=== PATIENT | male | born 1935 | race Caucasian/White ===

== ENCOUNTER 2016-11-29 11:04 | Observation (INO) | payer MEDICARE, OTHER ==
[2016-11-29] VITALS (8 sets, daily range): BP systolic 139–176; BP diastolic 65–79; PULSE 86–103; RESP 15–24; TEMP 98.5; O2SAT 91–97
[2016-11-29] MEDS ORDERED: MORPHINE SULFATE 8 MG/ML INJ ONE (11:10)
[2016-11-29] MEDS ORDERED: ONDANSETRON HCL 4 MG/2 ML VIAL ONE (11:10)
[2016-11-29 11:31] LABS: AUTOMATED NEUTROPHIL # 5.4 TH/MM3 (1.8-7.7); BASOPHIL # 0.1 TH/MM3 (0-0.2); BASOPHIL % 0.9 % (0.0-2.0); EOSINOPHIL # 0.1 TH/MM3 (0-0.4); EOSINOPHIL % 0.8 % (0.0-4.0); HEMATOCRIT 44.3 % (39.0-51.0); LYMPH % 24.9 % (9.0-44.0); LYMPHOCYTE # 2.1 TH/MM3 (1.0-4.8); MEAN CELL VOLUME 84.5 FL (80.0-100.0); MEAN CORPUSCULAR HEMOGLOBIN 28.4 PG (27.0-34.0); MEAN CORPUSCULAR HGB CONC 33.7 % (32.0-36.0); MONO % 9.3 % (0.0-8.0); NEUT % 64.1 % (16.0-70.0); PLATELET COUNT 216 TH/MM3 (150-450); RED BLOOD COUNT 5.25 MIL/MM3 (4.50-5.90); RED CELL DISTRIBUTION WIDTH 13.5 % (11.6-17.2); WHITE BLOOD COUNT 8.5 TH/MM3 (4.0-11.0)
[2016-11-29 11:32] LABS: HEMO FLAGS AUTO DIFF
--- NOTE | 2016-11-29 11:33 | PD ---
HPI Chief Complaint: trauma alert Time Seen by Provider: 11:13 Travel History International Travel<30 days: No Contact w/Intl Traveler<30days: No Traveled to known affect area: No History of Present Illness HPI The patient is approximately 81 year-old male who presents emergency department via EMS from [place] as a trauma alert. According to EMS the patient was going from a ladder to a roof when he fell approximately 12 feet. According to EMS the patient apparently fell against a brick wall and then landed on a cement ground. The patient states he landed back first, there was no loss of consciousness. The patient does complain of low back pain that is nonradiating, worse with movement, slightly alleviated at rest. The patient does have a history of previous back surgery. The patient denies any loss of consciousness, headache, neck pain, chest pain, shortness breath, nausea, vomiting, or abdominal pain. The patient does complain of did come to breathing out of his nose. The patient denies any weakness, numbness, or tingling of the upper or lower extremities. The patient did recently have open- heart surgery performed by his cardiothoracic surgeon, Dr. David, as well as a cardiac ablation 1 month ago. The patient is currently taking Xarelto. PFSH Past Medical History Narrative Medical Coronary artery disease, hypertension, hyperlipidemia, diabetes Past Surgical History Narrative Surgical CABG, back surgery Social History Tobacco Use: No Allergies-Medications (Allergen,Severity, Reaction): Coded Allergies: No Known Allergies (Unverified , 11/29/16) Reported Meds & Prescriptions Reported Meds & Active Scripts Active Reported Xarelto (Rivaroxaban) 20 Mg Tab 20 Mg PO DAILY Aspirin 81 Mg Chew 81 Mg CHEW DAILY Lisinopril-Hctz 20-12.5 Mg Tab 1 Tab PO DAILY Caduet (Amlodipine-Atorvastatin) 5-20 Mg Tab 1 Tab PO DAILY Metformin (Metformin HCl) 500 Mg Tab 500 Mg PO BIDPC With meals Review of Systems Except as stated in HPI: all other systems reviewed are Neg HENT: No: Headaches, Lightheadedness, Neck Pain Cardiovascular: No: Chest Pain or Discomfort Respiratory: No: Shortness of Breath Gastrointestinal: No: Nausea, Vomiting, Abdominal Pain Musculoskeletal: Positive: Pain Neurologic: No: Dizziness Physical Exam Narrative GENERAL: Awake, alert, pleasant 81-year-old appearing male who is in no acute respiratory distress. Patient initially is on a backboard wearing a cervical collar. SKIN: Warm and dry. Superficial abrasions to the volar aspect of the wrist bilaterally. HEAD: Atraumatic. Normocephalic. EYES: Pupils equal and round. Pupils are 3 mm bilateral and reactive. EOMs are intact. ENT: No nasal bleeding or discharge. Mucous membranes pink and moist. NECK: Trachea midline. No JVD. Cervical collar in place. CARDIOVASCULAR: Regular rate and rhythm. No murmur appreciated. Well-healed midline surgical scar. RESPIRATORY: No accessory muscle use. Clear to auscultation. Breath sounds equal bilaterally. GASTROINTESTINAL: Abdomen soft, non-tender, nondistended. No rebound tenderness. Back: Tenderness over the lumbar region with well-healed surgical scar present. MUSCULOSKELETAL: No obvious deformities. No clubbing. No cyanosis. No edema. Moves all 4 extremities without difficulty. NEUROLOGICAL: Awake and alert. No obvious cranial nerve deficits. Motor grossly within normal limits. Normal speech. Sensation is intact all 4 extremities. PSYCHIATRIC: Appropriate mood and affect; insight and judgment normal. Data Data Last Documented VS Vital Signs Date Time Temp Pulse Resp B/P Pulse Ox O2 Delivery O2 Flow Rate FiO2 11/29/16 12:05 86 15 176/79 95 Nasal Cannula 2 Orders Morphine Inj (Morphine Inj) (11/29/16 11:10) Ondansetron Inj (Zofran Inj) (11/29/16 11:10) I-Stat Profile (11/29/16 11:13) I-Stat Creatinine (11/29/16 11:13) Complete Blood Count With Diff (11/29/16 11:13) Prothrombin Time / Inr (Pt) (11/29/16 11:13) Act Partial Throm Time (Ptt) (11/29/16 11:13) Type And Screen (11/29/16 11:13) Chest, Single Ap (11/29/16 11:13) Pelvis, Ap Only (Routine) (11/29/16 11:13) Ct Brain W/O Iv Contrast(Rout) (11/29/16 11:13) Ct Cerv Spine W/O Contrast (11/29/16 11:13) Ct Abd/Pel W Iv Contrast(Rout) (11/29/16 11:13) Ct Lumb Spine W/O Contrast (11/29/16 11:13) Iv Access Insert/Monitor (11/29/16 11:13) Ecg Monitoring (11/29/16 11:13) Oximetry (11/29/16 11:13) Oxygen Administration (11/29/16 11:13) Ed Poc Ultrasound (11/29/16 11:13) Iohexol 350 Inj (Omnipaque 350 Inj) (11/29/16 11:36) Acetamin-Hydrocod 325-5 Mg ([place] 5-325 (11/29/16 12:45) Electrocardiogram (11/29/16 ) Morphine Inj (Morphine Inj) (11/29/16 13:15) Admit Order (Ed Use Only) (11/29/16 13:07) Labs Laboratory Tests Test 11/29/16 11:12 White Blood Count 8.5 TH/MM3 Red Blood Count 5.25 MIL/MM3 Hemoglobin 14.9 GM/DL Bedside Hemoglobin 15.3 G/DL Hematocrit 44.3 % Bedside Hematocrit 45.0 % Mean Corpuscular Volume 84.5 FL Mean Corpuscular Hemoglobin 28.4 PG Mean Corpuscular Hemoglobin 33.7 % Concent Red Cell Distribution Width 13.5 % Platelet Count 216 TH/MM3 Mean Platelet Volume 8.8 FL Neutrophils (%) (Auto) 64.1 % Lymphocytes (%) (Auto) 24.9 % Monocytes (%) (Auto) 9.3 % Eosinophils (%) (Auto) 0.8 % Basophils (%) (Auto) 0.9 % Neutrophils # (Auto) 5.4 TH/MM3 Lymphocytes # (Auto) 2.1 TH/MM3 Monocytes # (Auto) 0.8 TH/MM3 Eosinophils # (Auto) 0.1 TH/MM3 Basophils # (Auto) 0.1 TH/MM3 CBC Comment AUTO DIFF Differential Comment AUTO DIFF CONFIRMED Platelet Estimate NORMAL Platelet Morphology Comment NORMAL Red Cell Morphology Comment NORMAL Prothrombin Time 17.1 SEC Prothromb Time International 1.5 RATIO Ratio Activated Partial 36.6 SEC Thromboplast Time Bedside Sodium 141 MMOL/L Bedside Potassium 4.0 MMOL/L Bedside Chloride 102 MMOL/L Bedside Blood Urea Nitrogen 17 MG/DL Bedside Creatinine 0.9 MG/DL Bedside Glucose 157 MG/DL Blood Type O POSITIVE Antibody Screen NEGATIVE MDM Medical Screen Exam Complete: Yes Emergency Medical Condition: Yes Medical Record Reviewed: No (Bryce yang old records to evaluate) EKG Prior to Arrival: No Interpretation(s) CT cervical spine reveals degenerative changes and spinal stenosis. No evidence of fracture. CT of the brain reveals no acute traumatic injury CT abdomen and pelvis reveals negative for an acute manic injury. Significant vascular disease. Multiple diverticula in the sigmoid colon. CT lumbar spine reveals extensive degenerative changes without evidence for fracture. Laminectomy seen from L3 to L5. Laboratory Tests Test 11/29/16 11:12 White Blood Count 8.5 TH/MM3 Red Blood Count 5.25 MIL/MM3 Hemoglobin 14.9 GM/DL Bedside Hemoglobin 15.3 G/DL Hematocrit 44.3 % Bedside Hematocrit 45.0 % Mean Corpuscular Volume 84.5 FL Mean Corpuscular Hemoglobin 28.4 PG Mean Corpuscular Hemoglobin 33.7 % Concent Red Cell Distribution Width 13.5 % Platelet Count 216 TH/MM3 Mean Platelet Volume 8.8 FL Neutrophils (%) (Auto) 64.1 % Lymphocytes (%) (Auto) 24.9 % Monocytes (%) (Auto) 9.3 % Eosinophils (%) (Auto) 0.8 % Basophils (%) (Auto) 0.9 % Neutrophils # (Auto) 5.4 TH/MM3 Lymphocytes # (Auto) 2.1 TH/MM3 Monocytes # (Auto) 0.8 TH/MM3 Eosinophils # (Auto) 0.1 TH/MM3 Basophils # (Auto) 0.1 TH/MM3 CBC Comment AUTO DIFF Differential Comment AUTO DIFF CONFIRMED Platelet Estimate NORMAL Platelet Morphology Comment NORMAL Red Cell Morphology Comment NORMAL Prothrombin Time 17.1 SEC Prothromb Time International 1.5 RATIO Ratio Activated Partial 36.6 SEC Thromboplast Time Bedside Sodium 141 MMOL/L Bedside Potassium 4.0 MMOL/L Bedside Chloride 102 MMOL/L Bedside Blood Urea Nitrogen 17 MG/DL Bedside Creatinine 0.9 MG/DL Bedside Glucose 157 MG/DL Blood Type O POSITIVE EKG reveals normal sinus rhythm with a rate 88. First-degree AV block with NE interval of 263 ms. RSR prime in V1 consistent with incomplete right bundle branch block. Nonspecific T wave changes. Differential Diagnosis Differential diagnosis includes multisystem trauma, closed head injury, to cranial hemorrhage, cervical fracture, intra-abdominal injury, retroperitoneal hemorrhage, lumbar fracture, contusion, hematoma, spinal cord injury. Narrative Course ATLS protocol was followed. The trauma surgeon, Dr. Jazarevic, was present. The patient's airway, breathing, circulation were intact. 2 large-bore IVs were established, labs were drawn and sent, and the patient was placed on cardiac telemetry monitoring and continuous pulse oximetry monitoring. I-STAT was obtained. Chest x-ray and pelvis x-ray were obtained which were unremarkable. The patient's tetanus shot was updated and the patient was administered morphine and Zofran for his discomfort. The patient was log rolled off the backboard in the back was inspected. The patient then went to the CT suite with the trauma team for CT the brain, cervical spine, abdomen/ pelvis, and lumbar spine. CT of the brain, cervical spine, abdomen/pelvis, and lumbar spine are negative for acute pathology. Therefore, a trial of ambulation was performed in the emergency department. The patient was unable to sit upright secondary to low back pain and was unable to ambulate. Therefore , patient will be admitted for pain control and physical therapy evaluation. Trauma Alert - Level One Trauma Alert Level One: Full trauma team activate Time Surgeon Summoned: 10:51 Physician Communication I discussed the patient with the trauma surgeon who agrees with admission. Diagnosis Diagnosis: Primary Impression: Trauma Additional Impression: Intractable low back pain Admitting Physician Requests: Admit Condition: Stable Damian Echols MD Nov 29, 2016 11:33
--- NOTE | 2016-11-29 11:34 | RADRPT ---
EXAM DATE/TIME: 11/29/2016 11:20 [facility] COMPARISON: No previous studies available for comparison. INDICATIONS : Fall over 12 feet, trauma alert RADIATION DOSE: 55.91 CTDIvol (mGy) MEDICAL HISTORY : Non-responsive. SURGICAL HISTORY : Non-responsive. ENCOUNTER: Initial ACUITY: 1 day PAIN SCALE: 4/10 LOCATION: cranial TECHNIQUE: Multiple contiguous axial images were obtained of the head. Using automated exposure control and adjustment of the mA and/or kV according to patient size, radiation dose was kept as low as reasonably achievable to obtain optimal diagnostic quality images. FINDINGS: CEREBRUM: The ventricles are normal for age. No evidence of midline shift, mass lesion, hemorrha ge or acute infarction. No extra-axial fluid collections are seen. POSTERIOR FOSSA: The cerebellum and brainstem are intact. The 4th ventricle is midline. The cer ebellopontine angle is unremarkable. EXTRACRANIAL: The visualized portion of the orbits is intact. SKULL: The calvaria is intact. No evidence of skull fracture. CONCLUSION: Negative for acute traumatic injury. Jose Samuels MD FACR on November 29, 2016 at 11:32 Board Certified Radiologist. This report was verified electronically.
[2016-11-29] MEDS ORDERED: IOHEXOL 350 MG/ML 10 ML VIAL (for RAD DIAG) IV ONE (11:36)
--- NOTE | 2016-11-29 11:37 | RADRPT ---
EXAM DATE/TIME: 11/29/2016 10:59 [facility] COMPARISON: No previous studies available for comparison. INDICATIONS: Trauma alert. Fall from 12 foot ladder. Impact to lower back. MEDICAL HISTORY: None. SURGICAL HISTORY: None. ENCOUNTER: Initial ACUITY: 1 day PAIN SCORE: 0/10 LOCATION: Bilateral chest FINDINGS: Sternal wires from previous median sternotomy are noted. Heart is minimally enlarged. Pulmonary vas cularity is normal. There is no evidence for pneumothorax. CONCLUSION: 1. Compensated cardiomegaly without pneumothorax. 2. Artifact from backboard is present. Jose Samuels MD FACR on November 29, 2016 at 11:31 Board Certified Radiologist. This report was verified electronically.
--- NOTE | 2016-11-29 11:39 | RADRPT ---
EXAM DATE/TIME: 11/29/2016 10:59 [facility] COMPARISON: No previous studies available for comparison. INDICATIONS: Trauma alert. Fall from 12 foot ladder. Impact to lower back. MEDICAL HISTORY: None. SURGICAL HISTORY: None. ENCOUNTER: Initial ACUITY: 1 day PAIN SCORE: 8/10 LOCATION: Lumbar FINDINGS: AP of the pelvis on a backboard reveals degenerative changes about both hips. Alignment is anatomic. Fracture is not appreciated. CONCLUSION: Degenerative change without fracture. Jose Samuels MD FACR on November 29, 2016 at 11:32 Board Certified Radiologist. This report was verified electronically.
[2016-11-29 11:40] LABS: PROTHROMBIN TIME - PATIENT 17.1 SEC (9.8-11.6)
[2016-11-29 11:41] LABS: APTT (PATIENT) 36.6 SEC (24.3-30.1); INTERNATIONAL NORMALIZED RATIO 1.5 RATIO
[2016-11-29] MEDS ORDERED: ASPI81CH CHEW (11:52)
[2016-11-29] MEDS ORDERED: METF500T PO (11:52)
[2016-11-29] MEDS ORDERED: CADU5TAB2 PO (11:52)
[2016-11-29] MEDS ORDERED: LISI20TA PO (11:52)
[2016-11-29 12:02] LABS: PLATELET ESTIMATE SMEAR NORMAL (NORMAL); PLATELET MORPHOLOGY NORMAL (NORMAL); SCAN/DIFF AUTO DIFF CONFIRMED
--- NOTE | 2016-11-29 12:05 | RADRPT ---
EXAM DATE/TIME: 11/29/2016 11:27 [facility] COMPARISON: No previous studies available for comparison. INDICATIONS: Fall from 12 feet, trauma alert IV CONTRAST: 99 cc Omnipaque 350 (iohexol) IV; Cumulative dose for multiple exams. ORAL CONTRAST: No oral contrast ingested. RADIATION DOSE: 14.30 CTDIvol (mGy) MEDICAL HISTORY: Non-responsive. SURGICAL HISTORY: Non-responsive. ENCOUNTER: Initial ACUITY: 1 day PAIN SCALE: 5/10 LOCATION: Abdominal pain TECHNIQUE: Volumetric scanning of the abdomen and pelvis was performed. Using automated exposure control and ad justment of the mA and/or kV according to patient size, radiation dose was kept as low as reasonably achievable to obtain optimal diagnostic quality images. FINDINGS: Sternal wires from previous median sternotomy are noted. There is no pericardial effusion. There is no pneumothorax. The liver, spleen, pancreas, adrenals are unremarkable. There is symmetrical renal function. There is very minimal perinephric stranding about the left kidney with a small cyst evident. Moderate vascular calcifications are noted. In the pelvis moderate vascular calcifications are noted. Multiple diverticula are present in the si gmoid colon. Review of bone windows reveals degenerative changes in the lumbar spine. I see no definite rib fract ure. Moderate SI joint degenerative changes are noted. Degenerative changes are noted in the lumbar spine about both hips. Fracture is not appreciated. CONCLUSION: 1. Negative for an acute traumatic injury. 2. Significant vascular disease. 3. Multiple diverticula in the sigmoid colon. Jose Samuels MD FACR on November 29, 2016 at 11:46 Board Certified Radiologist. This report was verified electronically.
--- NOTE | 2016-11-29 12:05 | RADRPT ---
EXAM DATE/TIME: 11/29/2016 11:20 [facility] COMPARISON: No previous studies available for comparison. INDICATIONS: Fall from 12 feet, trauma alert RADIATION DOSE: 22.18 CTDIvol (mGy) MEDICAL HISTORY: Non-responsive. SURGICAL HISTORY: Non-responsive. ENCOUNTER: Initial ACUITY: 1 day PAIN SCALE: 4/10 LOCATION: Neck TECHNIQUE: Volumetric scanning of the cervical spine was performed. Multiplanar reconstructions in the sagittal, coronal and oblique axial planes were performed. Using automated exposure control and adjustment o f the mA and/or kV according to patient size, radiation dose was kept as low as reasonably achievable to obtain optimal diagnostic quality images. FINDINGS Alignment is anatomic in the sagittal and coronal projections. There are degenerative changes at C1 and C2. C2-C3: Mild uncinate ridging present without significant spinal stenosis. C3-C4: There is uncinate ridging present with moderate left-sided neural foramina encroachment. Spinal sten osis is moderate. C4-C5: Moderate facet disease is present with bilateral neural foramina encroachment worse on the right than left. Mild uncinate ridging is present. Spinal stenosis is minimal. C5-C6: Uncinate ridging is present with bilateral mild neural foramina encroachment. C6-C7: Mild uncinate ridging is present. There is minimal left-sided neural foramina encroachment. C7-T1: The bony spinal canal is normal in size. No evidence of disc bulge or herniation. The neural forami na are bilaterally patent. CONCLUSION: Mild degenerative changes as described above. Jose Samuels MD FACR on November 29, 2016 at 11:44 Board Certified Radiologist. This report was verified electronically.
[2016-11-29] MEDS ORDERED: XARE20TA PO (12:07)
--- NOTE | 2016-11-29 12:16 | RADRPT ---
EXAM DATE/TIME: 11/29/2016 11:27 [facility] COMPARISON: No previous studies available for comparison. INDICATIONS : Fall from 12 feet, trama alert RADIATION DOSE: CTDIvol (mGy) ; Reconstructed from previous dataset MEDICAL HISTORY : Non-responsive. SURGICAL HISTORY : Non-responsive. ENCOUNTER: Initial ACUITY: 1 day PAIN SCALE: 5/10 LOCATION: lumbar spine TECHNIQUE: Volumetric scanning of the lumbar spine was performed. Multiplanar reconstructions in the sagittal, coronal and oblique axial planes were performed. Using automated exposure control and adjustment of the mA and/or kV according to patient size, radiation dose was kept as low as reasonably achievable t o obtain optimal diagnostic quality images. FINDINGS: CT scan of the lumbar spine reveals extensive degenerative changes in the lumbar spine. There is los s of vertebral body height at L1 that appears chronic. Vacuum changes are seen at L3-4. Extensive f acet disease is noted with previous laminectomy at L3 to L5. T12-L1: Mild uncinate interspace ridging is present with mild facet disease. L1-L2: Mild facet disease is present. There is minimal spinal stenosis. L2-L3: Generalized disc bulging is present with facet disease. There is minimal ligamentous hypertrophy. T here is mild to moderate spinal stenosis. Large laminectomy defect is seen from L3 to L5. There is mild bilateral neural foramina encroachment L4-5. L3-L4: The thecal sac has a normal diameter. No evidence of disc bulge or protrusion. The neural foramina are patent bilaterally. L4-L5: Generalized disc bulging is present with moderate neural foramina encroachment on the left. Extensiv e facet disease is present. L5-S1: Moderate facet disease is present. SI joints are normal. There is no evidence for fracture. CONCLUSION: 1. Extensive degenerative changes without evidence for fracture. Laminectomy seen from L3 to L5. Jose Samuels MD FACR on November 29, 2016 at 11:55 Board Certified Radiologist. This report was verified electronically.
[2016-11-29] MEDS ORDERED: ACETAMINOPHEN/HYDROcodone 325 MG/5 MG TAB PO ONE (12:45)
[2016-11-29] MEDS ORDERED: MORPHINE SULFATE 4 MG/ML INJ IV PUSH ONE (13:15)
[2016-11-29] MEDS ORDERED: ACETAMINOPHEN 650 MG SUPP PR PRN (14:45)
[2016-11-29] MEDS ORDERED: SODIUM CHLORIDE 0.9% FLUSH 5 ML FLUSH IVF PRN ×2 (14:45→16:00)
[2016-11-29] MEDS ORDERED: MORPHINE SULFATE 4 MG/ML INJ IV PUSH PRN (14:45)
[2016-11-29] MEDS ORDERED: ACETAMINOPHEN/HYDROcodone 325 MG/5 MG TAB PO PRN (14:45)
[2016-11-29] MEDS ORDERED: ONDANSETRON HCL 4 MG/2 ML VIAL IV PRN (14:45)
[2016-11-29] MEDS ORDERED: MORPHINE SULFATE 8 MG/ML INJ IV PUSH PRN (16:00)
[2016-11-29] MEDS ORDERED: Post-op Orders (for Pharmacy) MISC XX ONE (16:00)
[2016-11-29] MEDS ORDERED: oxyCODONE/ACETAMINOPHEN 5 MG/325 MG TAB PO PRN (16:00)
--- NOTE | 2016-11-29 17:53 | MH ---
cc: GALE RAMIREZ MD DATE OF ADMISSION 11/29/[address] Ramirez, trauma surgery ADMISSION DIAGNOSIS Fall from 12 feet ladder, coronary artery disease, severe back pain, anticoagulant therapy. HISTORY OF THE PRESENT ILLNESS This 81-year-old gentleman fell in [facility] from a ladder about 12 feet. The patient apparently landed against a brick wall and then landed on cement ground. He landed on his back without loss of consciousness. The patient started having severe pain and got short of breath. He is on Xarelto after his open heart surgery by Dr. David last year and cardiac ablation one month ago. Hence the trauma alert on admission. PAST MEDICAL HISTORY 1. Coronary artery disease. 2. Hypertension. 3. Hyperlipidemia. 4. Diabetes mellitus. PAST SURGICAL HISTORY Is that of: 1. Open heart surgery. 2. Back surgery. 3. Coronary ablation. 4. And left knee replacement. SOCIAL HISTORY The patient does not smoke, does not drink. 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 REVIEW OF SYSTEMS Normal except for severe back pain. The patient was doing well until now. PHYSICAL EXAMINATION GENERAL: Shows a pleasant 81-year-old gentleman appearing younger than his age. HEENT: Normocephalic. No trauma to the head. Pupils equally reactive. Extraocular muscles intact. NECK: Supple. Bilateral carotid pulses. No bruits. No signs of trauma to the neck. C collar is removed. CHEST: Bilateral breath sounds. HEART: Regular rhythm. Mediastinotomy scar nicely healed. ABDOMEN: Soft. Active bowel sounds. No rebound or guarding. No masses. EXTREMITIES: The patient has bilateral femoral, popliteal, dorsalis pedis and posterior tibial pulses. Scars from previous surgery. BACK: The patient is turned sideways to the back and log rolled. He has a surgical scar from previous laminectomy and fusion, however, he is extremely tender over the back from mid thoracic down to the lumbar spine. NEUROLOGICAL: The patient's [place] Coma Scale is 15. He is awake and alert, oriented times three. Motor and sensory full intact. CONCLUSION The patient with 12 feet fall on Xarelto for cardiovascular maintenance. At this point the patient is in severe pain and being on Xarelto I recommend a 24 hour observation. The patient will be admitted, receive pain medications, echocardiogram and be observed. Gale GRAVES /5:16 PM /5:43 PM
[2016-11-29] MEDS: LISINOPRIL 20 MG TAB PO SCH (18:00)
[2016-11-29] MEDS: metFORMIN HCL 500 MG TAB PO SCH (18:48)
[2016-11-29] MEDS ORDERED: VALS1TAB65 PO (18:51)
[2016-11-29] MEDS: DOCUSATE SODIUM 100 MG CAP PO SCH (20:20)
[2016-11-29] MEDS: SODIUM CHLORIDE 0.9% FLUSH 5 ML FLUSH IVF SCH (20:20)
[2016-11-29] MEDS ORDERED: SODIUM CHLORIDE 0.9% FLUSH 5 ML FLUSH IVF SCH (21:00)
[2016-11-30 00:28] VITALS: BP 163/79; PULSE 92; RESP 18; TEMP 97.7; O2SAT 95
[2016-11-30 05:34] VITALS: BP 160/76; PULSE 86; RESP 19; TEMP 97; O2SAT 92
[2016-11-30] MEDS: ACETAMINOPHEN 325 MG TAB PO PRN ×3 (05:46→15:31)
[2016-11-30 08:20] VITALS: BP 167/79; PULSE 88; RESP 20; TEMP 96.3; O2SAT 93
[2016-11-30 08:34] VITALS: O2SAT 94
[2016-11-30] MEDS: LISINOPRIL 20 MG TAB PO SCH (09:00)
[2016-11-30] MEDS ORDERED: RIVAROXABAN 20 MG TAB PO SCH (09:00)
[2016-11-30] MEDS ORDERED: MAGNESIUM HYDROXIDE SUSP 30 ML CUP PO SCH (09:15)
[2016-11-30] MEDS ORDERED: FAMOTIDINE 20 MG TAB PO SCH (09:15)
[2016-11-30] MEDS: SODIUM CHLORIDE 0.9% FLUSH 5 ML FLUSH IVF SCH (10:25)
[2016-11-30] MEDS: metFORMIN HCL 500 MG TAB PO SCH (10:27)
[2016-11-30] MEDS: DOCUSATE SODIUM 100 MG CAP PO SCH (10:27)
[2016-11-30] MEDS: METHOCARBAMOL 500 MG TAB PO SCH ×2 (10:30→13:16)
[2016-11-30] MEDS ORDERED: HYDR-3516 PO (11:43)
[2016-11-30] MEDS ORDERED: WALKER WHEELS/F1 MIS ×2 (11:48→13:29)
[2016-11-30] MEDS ORDERED: LIDO5DIS35 TD (11:52)
[2016-11-30] MEDS ORDERED: METH500T3 PO (11:52)
[2016-11-30] MEDS ORDERED: LIDOCAINE HCL 5% PATCH TD SCH (12:00)
[2016-11-30 12:27] VITALS: BP 157/84; PULSE 84; RESP 20; TEMP 97.7; O2SAT 94
--- NOTE | 2016-11-30 13:12 | HHI.DS ---
Discharge Summary Admission Date Nov 29, 2016 at 13:08 Discharge Date: Nov 30, 2016 Admitting Diagnosis trauma alert, back pain, inability to ambulate Brief History S/P Trauma: Fall from ladder CBC/BMP: 11/29/16 1112 Significant Findings Laboratory Tests Test 11/29/16 11:12 Monocytes (%) (Auto) 9.3 % (0.0-8.0) Prothrombin Time 17.1 SEC (9.8-11.6) Activated Partial 36.6 SEC Thromboplast Time (24.3-30.1) Bedside Glucose 157 MG/DL (60-95) Imaging Last Impressions Pelvis X-Ray 11/29/16 111 Signed Impressions: Service Date/Time: Tuesday, November 29, 2016 10:59 - CONCLUSION: Degenerative change without fracture. Jose Samuels MD FACR Lumbar Spine CT 11/29/161112 Signed Impressions: Service Date/Time: Tuesday, November 29, 2016 11:27 - CONCLUSION: 1. Extensive degenerative changes without evidence for fracture. Laminectomy seen from L3 to L5. Jose Samuels MD FACR Head CT 11/29/163 Signed Impressions: Service Date/Time: Tuesday, November 29, 2016 11:20 - CONCLUSION: Negative for acute traumatic injury. Jose Samuels MD FACR Chest X-Ray 11/29/161112 Signed Impressions: Service Date/Time: Tuesday, November 29, 2016 10:59 - CONCLUSION: 1. Compensated cardiomegaly without pneumothorax. 2. Artifact from backboard is present. Jose Samuels MD FACR Cervical Spine CT 11/29/16 1113 Signed Impressions: Service Date/Time: Tuesday, November 29, 2016 11:20 - CONCLUSION: Mild degenerative changes as described above. Jose Samuels MD FACR Abdomen/Pelvis CT 11/29/16 1113 Signed Impressions: Service Date/Time: Tuesday, November 29, 2016 11:27 - CONCLUSION: 1. Negative for an acute traumatic injury. 2. Significant vascular disease. 3. Multiple diverticula in the sigmoid colon. Jose Samuels MD FACR PE at Discharge GENERAL: 81-year-old well-nourished, well developed male lying in bed. SKIN: Warm and dry. Bilateral forearms with abrasions noted. HEAD: Atraumatic. Normocephalic. ENT: No nasal bleeding or discharge. Mucous membranes pink and moist. NECK: Trachea midline. No JVD. CARDIOVASCULAR: Regular rate and rhythm. RESPIRATORY: No accessory muscle use. Lungs clear to auscultation. Breath sounds equal bilaterally. GASTROINTESTINAL: Abdomen soft, non-tender, nondistended. + BS. MUSCULOSKELETAL: Extremities without cyanosis, or edema. No obvious deformities. Right wrist ecchymosis, patient has full range of motion in wrist. MAEW, + sensation x4. NEUROLOGICAL: Awake and alert. Normal speech. Hospital Course [place]: Patient fell off a 12 foot ladder landing on his back on the cement. No LOC. Initial complaints of severe back pain and shortness of breath. INJURIES: NONE- pain control PMHx: CAD, DM, HLD, HTN, CABG, back sx Diet: ADA, tolerating Pulmonary: IS encouraged home use Pain: [place], Morphine, Robaxin. Added Lidoderm patch. Pain better controlled with PO meds. Patient reports he became nauseated with morphine last night. Activity: OOB, PT evaluated. Patient ambulated halls with walker. GI: Pepcid Bowel: Colace. MOM. DVT:SCDs Wound care: Wash abrasions daily with soap and water. Leave open to air. Apply [id number] antibacterial ointment. May cover with dry dressing if draining. Patient reports he feels safe to go home with a walker. Patient's agrees. Follow-up with PCP in 1-2 weeks. Plan of care discussed with patient and at bedside. Patient is clear from trauma surgery standpoint to safely discharge home with a walker. Pt Condition on Discharge: Stable Discharge Disposition: Discharge Home Discharge Instructions DIET: Follow Instructions for: Heart Healthy Diet, Diabetic Diet Activities you can perform: Regular-No Restrictions Activities to Avoid: Concussion Sports, Strenuous Activity Brandon Kumar Nov 30, 2016 13:12
[2016-11-30 15:49] VITALS: BP 172/82
[2016-11-30] MEDS ORDERED: REMOVE OLD PATCH T-DERMAL SCH (21:00)
--- NOTE | 2016-12-01 11:52 | EKG ---
Date Performed: 11/29/2016 Time Performed: 13:31:55 PTAGE: 89 years EKG: Sinus rhythm WITH FIRST DEGREE AV BLOCK INCOMPLETE RIGHT BUNDLE BRANCH BLOCK NONSPECIFIC T-WAVE ABNORMALITY ABNOR MAL ECG NO PREVIOUS TRACING DOCTOR: Ye De Dios Interpretating Date/Time 12/01/2016 11:51:15
== END 2016-11-30 16:03 | disposition home or self-care (01) ==
LOC: NEPI 11:04 → EDBD 13:08 → MERGE 13:08 → INTOOBSV 13:08 → NEDA 13:08 → N05B 17:31
PROVIDERS: ADMIT Surgery; ATTEND Surgery
DX: M54.5 Low back pain (principal); I25.10 Atherosclerotic heart disease of native coronary artery without angina pectoris; I10 Essential (primary) hypertension; E78.5 Hyperlipidemia, unspecified; E11.9 Type 2 diabetes mellitus without complications; R94.31 Abnormal electrocardiogram [ECG] [EKG]; Z95.1 Presence of aortocoronary bypass graft; Z96.652 Presence of left artificial knee joint; W11.XXXA Fall on and from ladder, initial encounter
CPT/HCPCS: 70450; 71010; 72125; 72131; 72170; 74177; 82435; 82565; 82947; 84132; 84295; 84520; 85025; 85610; 85730; 86850; 86900; 86901; 90471; 93005; 94150; 96374; 96375; 97162; 99285; G0378; G0390; G8987; G8988; J2270; J2405; Q9967; 99291

== ENCOUNTER 2018-05-13 13:29 | Inpatient (IN) ==
[2018-05-13] MEDS ORDERED: Sod Chloride 0.9% Inj 1,000 ML IV.CONT SCH (13:45)
[2018-05-13 13:52] LABS: Baso # (Auto) 0.1 th/mm3 (0.0-0.2); Baso % (Auto) 0.7 % (0.0-2.0); Eos # (Auto) 0.1 th/mm3 (0.0-0.4); Eos % (Auto) 1.4 % (0.0-4.0); Hematocrit 44.8 % (39.0-51.0); Hemoglobin 14.7 gm/dL (13.0-17.0); Lymph % (Auto) 20.7 % (9.0-44.0); Mean Corpuscular HGB Conc 32.8 % (32.0-36.0); Mean Corpuscular Volume 76.3 fL (80.0-100.0); Mean Platelet Volume 7.9 fL (7.0-11.0); Mono % (Auto) 10.7 % (0.0-8.0); Neut # (Auto) 6.3 th/mm3 (1.8-7.7); Neut % (Auto) 66.5 % (16.0-70.0); Platelet Count 195 th/mm3 (150-450); Red Blood Count 5.87 mil/mm3 (4.50-5.90); Red Cell Distribution Width 15.6 % (11.6-17.2); White Blood Count 9.5 th/mm3 (4.0-11.0)
--- NOTE | 2018-05-13 13:53 | CT ---
EXAM DATE: 05/13/2018 1:46 PM EDT AGE/SEX: 83 years / Male INDICATIONS: Stroke alert, right sided weakness. CLINICAL DATA: This is the patient's initial encounter. Patient reports that signs and symptoms have been present for 1 day and indicates a pain score of Nonresponsive. MEDICAL/SURGICAL HISTORY: Non-responsive. Non-responsive. RADIATION DOSE: 52.83 CTDI (mGy) COMPARISON: [facility] [place], CT BRAIN W/O CONTRAST, 11/29/2016. . TECHNIQUE: CT of the head without contrast. Using automated exposure control and adjustment of the mA and/or kV according to patient size, radiation dose was kept as low as reasonably achievable to ob tain optimal diagnostic quality images. DICOM format image data is available electronically for revi ew and comparison. FINDINGS: Cerebrum: The ventricles are normal for age. There is bilateral cortical atrophy and chronic white matter changes characteristic for patient's age. No significant changes compared to the prior examina tion. No evidence of midline shift, mass lesion, hemorrhage or acute infarction. No extraaxial fluid collections are seen. Posterior Fossa: The cerebellum and brainstem are intact. The 4th ventricle is midline. The cerebe llopontine angle is unremarkable. Extracranial: The visualized portion of the orbits is intact. Skull: The calvaria is intact. No evidence of skull fracture. CONCLUSION: 1. Bilateral cortical atrophy and chronic white matter changes. 2. No focal or acute intracranial hemorrhage. Report was called by Dr. Carter to Dr. Maciel at 1:50 PM Electronically signed by: Junior Carter MD 05/13/2018 1:51 PM EDT
[2018-05-13 14:00] LABS: Activated Partial Thrombo Time 26.7 sec (24.3-30.1); INR 1.2 Ratio; Prothrombin Time 12.5 sec (9.8-11.6)
[2018-05-13] MEDS ORDERED: Alteplase Bolus 9 MG/9 ML Syringe IV.PUSH ONE (14:00)
[2018-05-13] MEDS ORDERED: ALTEPLASE DRIP IV.SIG ONE (14:00)
[2018-05-13] MEDS ORDERED: Sodium Chlor 0.9% Inj 500 ML IV.SIG ONE (14:03)
[2018-05-13 14:09] LABS: Anion Gap 9 meq/L (5-15); Blood Urea Nitrogen 21 mg/dL (7-18); Calcium 8.8 mg/dL (8.5-10.1); Chloride 105 meq/L (98-107); Glomerular Filtration Rate 44 mL/min (>89); Glucose,Random 109 mg/dL (74-106); Potassium 3.6 meq/L (3.5-5.1); Sodium 141 meq/L (136-145)
--- NOTE | 2018-05-13 14:10 | CT ---
EXAM DATE: 05/13/2018 2:04 PM EDT AGE/SEX: 83 years / Male INDICATIONS: Stroke alert, right sided weakness. CLINICAL DATA: This is the patient's initial encounter. Patient reports that signs and symptoms have been present for 1 day and indicates a pain score of Nonresponsive. MEDICAL/SURGICAL HISTORY: Non-responsive. Non-responsive. RADIATION DOSE: 10.55 CTDI (mGy) COMPARISON: No prior exams available for comparison. TECHNIQUE: Volumetric scanning was performed using a multi-row detector CT scanner during bolus infu christine of 80 ml Visipaque 320 (iodixanol) nonionic water-soluble contrast as a cumulative dose for mul tiple exams. The data was post processed with a variety of visualization algorithms including full volume maximum intensity projection, multi-planar sliding thin slab reformation, curved planar reform ation, and surface rendering techniques. Using automated exposure control and adjustment of the mA a nd/or kV according to patient size, radiation dose was kept as low as reasonably achievable to obtain optimal diagnostic quality images. DICOM format image data is available electronically for review a nd comparison. FINDINGS: There is excellent visualization of the major intracranial arteries out to the second-order branch ve ssels. There is no evidence for aneurysm, vessel truncation or stenosis, and no evidence for vascula r malformation. There is a patent left posterior to indicating artery. CONCLUSION: 1. Unremarkable MRA of the brain. Electronically signed by: Junior Carter MD 05/13/2018 2:09 PM EDT
[2018-05-13 14:14] LABS: Creatine Kinase 122 U/L (39-308)
--- NOTE | 2018-05-13 14:14 | ED ---
HPI General Chief Complaint: Stroke Alert Stated Complaint: Stroke Alert Time Seen by Provider: 05/13/18 13:33 Source: patient and EMS Mode of arrival: EMS Limitations: physical limitation History of Present Illness HPI Narrative: 83-year-old male complains of slow speech and right-sided facial and right arm right leg weakness. Patient states that symptoms started about an hour ago. Patient denies any headache. Patient denies any visual change. Patient denies any neck pain. Patient denies any chest pain or shortness of breath. Patient denies abdominal pain. Patient denies any recent injury. Patient has history of coronary artery disease status post open heart surgery and cardiac ablation. Patient was on Xarelto last year. Patient states that he is not on Xarelto now. Patient also has history of hypertension, diabetes, hyperlipidemia. Patient is on aspirin 81 mg daily, lisinopril, HCTZ, Caduet, metformin. Onset (ago): minute(s) Timing confirmed by: other Location: speech, right face, right arm and right leg History of same: No Severity: moderate Quality: weak Relieving factors: none Exacerbating factors: none Context: sudden onset On Anticoagulants: No Treatments Prior to Arrival: oxygen Related Data Home Medications Medication Instructions Recorded Confirmed Unable to Obtain Home Meds 05/13/18 05/13/18 Allergies Allergy/AdvReac Type Severity Reaction Status Date / Time No Known Allergies Allergy Uncoded 11/29/16 07:02 Review of Systems ROS: all other systems reviewed are negative PMFSH History History Provided By: Patient and Operations Forester / EMT Social History Social History Recent Travel in [facility] within the Last 8 Weeks: No Recent Out of Country Travel within the Last 8 Weeks: No Exam Narrative Exam Narrative: GENERAL: Well-nourished, well-developed patient. SKIN: Focused skin assessment warm/dry. HEAD: Normocephalic. EYES: No scleral icterus. No injection or drainage. NECK: Supple, trachea midline. No JVD or lymphadenopathy. CARDIOVASCULAR: Regular rate and rhythm without murmurs, gallops, or rubs. RESPIRATORY: Breath sounds equal bilaterally. No accessory muscle use. GASTROINTESTINAL: Abdomen soft, non-tender, nondistended. MUSCULOSKELETAL: No cyanosis, or edema. BACK: Nontender without obvious deformity. No CVA tenderness. Neurologic exam: Patient is awake and alert. Patient with slow speech. Patient has mild right-sided facial weakness. Patient has mild right-sided weakness on the right arm and right leg. Patient is able to lift the right arm and right leg off the bed. Patient can push my hand away from him using the right arm. Patient's able to flex her right knee and left the right leg off the bed against resistance. Visual field intact. Course Initial Documented Vital Signs Pulse Rate 108 H 05/13/18 13:31 Respiratory Rate 16 05/13/18 13:31 Blood Pressure 173/79 H 05/13/18 13:31 Pulse Oximetry 99 05/13/18 13:31 Last Documented Vital Signs Pulse Rate 108 H 05/13/18 13:31 Respiratory Rate 16 05/13/18 13:31 Blood Pressure 173/79 H 05/13/18 13:31 Pulse Oximetry 95 05/13/18 13:58 Medical Decision Making MDM Narrative Medical decision making narrative: 83-year-old male with slurred speech and right-sided facial weakness and right arm right leg weakness. Stroke alert was called. CT scan of brain did not show any evidence of bleed. TPA was ordered. I spoke with Dr. Estes, neurologist time motion analyst who agreed with the plan. Differential Diagnosis Differential Diagnosis: Differential diagnosis including TIA, CVA. Lab Data Lab results reviewed: Yes I reviewed the patient's lab results. Result diagrams: 05/13/18 13:30 05/13/18 13:30 Lab Results 05/13/18 05/13/18 05/13/18 Range/Units 13:30 13:30 13:30 WBC 9.5 (4.0-11.0) th/mm3 RBC 5.87 (4.50-5.90) mil/mm3 Hgb 14.7 (13.0-17.0) gm/dL POC Hgb (Calc) 15.3 (13.0-17.0) g/dL Hct 44.8 (39.0-51.0) % POC Hct 45.0 (39-51.0) % MCV 76.3 L (80.0-100.0) fL MCH 25.0 L (27.0-34.0) pg MCHC 32.8 (32.0-36.0) % RDW 15.6 (11.6-17.2) % Plt Count 195 (150-450) th/mm3 MPV 7.9 (7.0-11.0) fL Neut % (Auto) 66.5 (16.0-70.0) % Lymph % (Auto) 20.7 (9.0-44.0) % Lipscomb % (Auto) 10.7 H (0.0-8.0) % Eos % (Auto) 1.4 (0.0-4.0) % Baso % (Auto) 0.7 (0.0-2.0) % Neut # (Auto) 6.3 (1.8-7.7) th/mm3 Lymph # (Auto) 2.0 (1.0-4.8) th/mm3 Lipscomb # (Auto) 1.0 H (0.0-0.9) th/mm3 Eos # (Auto) 0.1 (0.0-0.4) th/mm3 Baso # (Auto) 0.1 (0.0-0.2) th/mm3 WBC Differential . Differential Comment Auto diff final PT 12.5 H (9.8-11.6) sec INR 1.2 Ratio APTT 26.7 (24.3-30.1) sec Fibrinogen 334 (227-377) mg/dL POC Sodium 143 (137-144) mmol/L Sodium 141 (136-145) meq/L POC Potassium 3.5 L (3.6-5.0) mmol/L Potassium 3.6 (3.5-5.1) meq/L POC Chloride 102 (102-111) mmol/L Chloride 105 (98-107) meq/L Carbon Dioxide 27.0 (21.0-32.0) meq/L Anion Gap 9 (5-15) meq/L POC BUN 19 (5-21) mg/dL BUN 21 H (7-18) mg/dL Creatinine 1.51 H (0.60-1.30) mg/dL POC Creatinine 1.3 (0.6-1.3) mg/dL Estimated GFR 44 L (>89) mL/min POC Glucose 114 H (68-110) mg/dL Random Glucose 109 H (74-106) mg/dL Calcium 8.8 (8.5-10.1) mg/dL Total Creatine Kinase 122 (39-308) U/L Troponin I Less than 0.02 L (0.02-0.05) ng/mL Blood Type 05/13/18 05/13/18 Range/Units 13:30 13:31 WBC (4.0-11.0) th/mm3 RBC (4.50-5.90) mil/mm3 Hgb (13.0-17.0) gm/dL POC Hgb (Calc) (13.0-17.0) g/dL Hct (39.0-51.0) % POC Hct (39-51.0) % MCV (80.0-100.0) fL MCH (27.0-34.0) pg MCHC (32.0-36.0) % RDW (11.6-17.2) % Plt Count (150-450) th/mm3 MPV (7.0-11.0) fL Neut % (Auto) (16.0-70.0) % Lymph % (Auto) (9.0-44.0) % Lipscomb % (Auto) (0.0-8.0) % Eos % (Auto) (0.0-4.0) % Baso % (Auto) (0.0-2.0) % Neut # (Auto) (1.8-7.7) th/mm3 Lymph # (Auto) (1.0-4.8) th/mm3 Lipscomb # (Auto) (0.0-0.9) th/mm3 Eos # (Auto) (0.0-0.4) th/mm3 Baso # (Auto) (0.0-0.2) th/mm3 WBC Differential Differential Comment PT (9.8-11.6) sec INR Ratio APTT (24.3-30.1) sec Fibrinogen (227-377) mg/dL POC Sodium (137-144) mmol/L Sodium (136-145) meq/L POC Potassium (3.6-5.0) mmol/L Potassium (3.5-5.1) meq/L POC Chloride (102-111) mmol/L Chloride (98-107) meq/L Carbon Dioxide (21.0-32.0) meq/L Anion Gap (5-15) meq/L POC BUN (5-21) mg/dL BUN (7-18) mg/dL Creatinine (0.60-1.30) mg/dL POC Creatinine (0.6-1.3) mg/dL Estimated GFR (>89) mL/min POC Glucose 121 H (68-110) mg/dL Random Glucose (74-106) mg/dL Calcium (8.5-10.1) mg/dL Total Creatine Kinase (39-308) U/L Troponin I (0.02-0.05) ng/mL Blood Type O Positive Imaging Data Radiologist's impression: Chest X-Ray 05/13/18 13:35 CONCLUSION: 1. Mild pulmonary venous congestion. 2. Moderate compensated cardiomegaly. Head CT 05/13/18 13:35 CONCLUSION: 1. Bilateral cortical atrophy and chronic white matter changes. 2. No focal or acute intracranial hemorrhage. Report was called by Dr. Carter to Dr. Maciel at 1:50 PM Head CTA 05/13/18 13:35 CONCLUSION: 1. Unremarkable MRA of the brain. Neck CTA 05/13/18 13:35 CONCLUSION: 1. There is a least moderate calcified atherosclerotic plaquing at the right carotid bifurcation and proximal segment of the right internal carotid artery. There is some focal moderate stenosis of the right internal carotid artery approximately 1 cm above the bifurcation by approximately 50-60%. 2. Mild diastasis chronic changes of the left carotid artery system. No focal high-grade or significant stenosis. 3. 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 The left vertebral artery is patent throughout its extent. Discharge Plan Discharge Disposition Patient Disposition: 30 Still Patient Discharge Details Diagnosis: Acute cerebrovascular accident Physicians Team ED Provider: Naveen Maciel Primary Care Provider: UNKNOWN, Rxs /Orders / Referrals /Forms Prescriptions: No Action Unable to Obtain Home Meds RF: 0 Status ED Status: With Doctor
--- NOTE | 2018-05-13 14:16 | CT ---
EXAM DATE: 05/13/2018 2:07 PM EDT AGE/SEX: 83 years / Male INDICATIONS: Stroke alert, right sided weakness. CLINICAL DATA: This is the patient's initial encounter. Patient reports that signs and symptoms have been present for 1 day and indicates a pain score of Nonresponsive. MEDICAL/SURGICAL HISTORY: Non-responsive. Non-responsive. RADIATION DOSE: 10.55 CTDI (mGy) ; Combined studies COMPARISON: No prior exams available for comparison. TECHNIQUE: Volumetric scanning was performed using a multirow detector CT scanner during bolus infus ion of 80 ml Visipaque 320 (iodixanol) nonionic water-soluble contrast as a cumulative dose for mult iple exams. The data was postprocessed with a variety of visualization algorithms including full-vo lume maximum intensity projection, multiplanar sliding thin-slab reformation, curved-planar reformati on, and surface-rendering techniques. Using automated exposure control and adjustment of the mA and/ or kV according to patient size, radiation dose was kept as low as reasonably achievable to obtain op timal diagnostic quality images. DICOM format image data is available electronically for review and comparison. FINDINGS: Aortic Arch: There is a three-vessel origin of the great vessels from the aorta. No evidence of ost ial narrowing. There is atherosclerotic plaquing along the thoracic aortic arch. Right Carotid: The common carotid artery is patent. 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 There is moderate calcified plaquing at the bifurcation. Approximately 1 cm above the bifurcation there is a moderate calcified plaque causing moderate focal stenosis of approximately 50 -60%. The rest of the internal carotid artery is patent. The external carotid artery is patent. Left Carotid: The common carotid artery is intact. The carotid bulb has a normal configuration with out ulceration or narrowing. The internal carotid artery lumen is smooth without stenosis. The exte rnal carotid artery is intact. There is some mild atherosclerotic changes at the bifurcation. Vertebrals: The left vertebral artery is patent throughout its extent. There appears to be segmental occlusion involving the proximal portion of the right vertebral artery. There is some reconstitution of the mid to distal right vertebral artery most likely from collaterals with a trace of contrast no lázaro in the right vertebral artery. Percent stenosis is calculated using the diameter of the stenotic region over the diameter of the nor mal distal internal carotid artery. CONCLUSION: 1. There is a least moderate calcified atherosclerotic plaquing at the right carotid bifurcation and proximal segment of the right internal carotid artery. There is some focal moderate stenosis of the right internal carotid artery approximately 1 cm above the bifurcation by approximately 50-60%. 2. Mild diastasis chronic changes of the left carotid artery system. No focal high-grade or signific ant stenosis. 3. 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 The le ft vertebral artery is patent throughout its extent. Electronically signed by: Junior Carter MD 05/13/2018 2:15 PM EDT
--- NOTE | 2018-05-13 14:17 | XR ---
EXAM DATE: 05/13/2018 2:03 PM EDT AGE/SEX: 83 years / Male INDICATIONS: Stroke Alert CLINICAL DATA: This is the patient's initial encounter. Patient reports that signs and symptoms have been present for 1 day and indicates a pain score of Nonresponsive. MEDICAL/SURGICAL HISTORY: Non-responsive. Non-responsive. COMPARISON: [facility], XR CHEST PA AND LAT, 12/09/2008. . FINDINGS: A single AP view of the chest demonstrates the lungs to be symmetrically aerated without evidence of mass, infiltrate or effusion. There is some mild prominence of pulmonary vasculature. The heart size is enlarged. There is evidence of previous cardiothoracic surgery. The bony structures are grossly in tact.. CONCLUSION: 1. Mild pulmonary venous congestion. 2. Moderate compensated cardiomegaly. Electronically signed by: Junior Carter MD 05/13/2018 2:16 PM EDT
--- NOTE | 2018-05-13 14:52 | CT ---
EXAM DATE: 05/13/2018 2:47 PM EDT AGE/SEX: 83 years / Male INDICATIONS: Vomiting status post TPA. CLINICAL DATA: This is the patient's initial encounter. Patient reports that signs and symptoms have been present for 1 day and indicates a pain score of Nonresponsive. MEDICAL/SURGICAL HISTORY: Non-responsive. Non-responsive. RADIATION DOSE: 41.21 CTDI (mGy) COMPARISON: [facility] [place], CT HEAD W/O CONTRAST, 05/13/2018. . TECHNIQUE: CT of the head without contrast. Using automated exposure control and adjustment of the mA and/or kV according to patient size, radiation dose was kept as low as reasonably achievable to ob tain optimal diagnostic quality images. DICOM format image data is available electronically for revi ew and comparison. FINDINGS: Cerebrum: The ventricles are normal for age. There is bilateral cortical atrophy and chronic white m atter changes. No evidence of midline shift, mass lesion, hemorrhage or acute infarction. No extraax ial fluid collections are seen. There is a small old infarct involving the left frontal lobe. Posterior Fossa: The cerebellum and brainstem are intact. The 4th ventricle is midline. The cerebe llopontine angle is unremarkable. Extracranial: The visualized portion of the orbits is intact. Skull: The calvaria is intact. No evidence of skull fracture. CONCLUSION: 1. No focal or acute intracranial hemorrhage. 2. 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 3. Stable bilateral cortical atrophy and chronic white matter changes. . Electronically signed by: Junior Carter MD 05/13/2018 2:51 PM EDT
[2018-05-13] MEDS ORDERED: Acetaminophen 325 MG Tablet PO PRN (14:54)
[2018-05-13] MEDS ORDERED: Bisacodyl 10 MG Supp RECTAL PRN (14:54)
[2018-05-13] MEDS ORDERED: Morphine Sulfate Inj 2 MG/ML Vial IV.PUSH PRN (14:54)
[2018-05-13] MEDS: Pantoprazole Inj 40 MG Vial IV.PUSH SCH (15:21)
[2018-05-13] MEDS: Sod Chloride 0.9% Inj 1,000 ML IV.CONT SCH (15:22)
--- NOTE | 2018-05-13 15:24 | MB ---
cc: Guzman Estes MD DATE: 05/13/2018 HISTORY OF PRESENT ILLNESS: This patient is an 83-year-old man. He was last seen in this hospital 11/29/2016 with a history of hypertension, [id number] diabetes, hypercholesterolemia, CABG. He takes a baby aspirin a day. He was on Xarelto a few months back after his CABG, but only for a month. Nevertheless less than an hour before presentation to the hospital[place] was noted to have a sudden onset of right-sided weakness and difficulty talking and came into the emergency room. There were some bystanders there that witnessed the sudden change according to Dr. Maciel in the ER. MEDICATIONS: Currently unclear exactly which medication he is taking, but he has not been on any blood thinners according to his and himself except for a baby aspirin a day recently. SOCIAL HISTORY: Not a smoker or drinker, lives with his . FAMILY HISTORY: Negative for cancer, seizure or stroke. REVIEW OF SYSTEMS: He and his denied any atrial fibrillation, Coumadin, renal, hepatic, pulmonary disease, thyroid disease, lupus, ulcer, cancer, seizure, prior stroke. PHYSICAL EXAMINATION: GENERAL: He is 150/70 sinus rhythm. NECK: There was possibly a right carotid bruit versus a radiated murmur. HEART: Regular rhythm with a 1/6 systolic ejection murmur. NEUROLOGIC: The pupils are equal. He has decreased visual acuity over to the right, he could see well to the left. His face was symmetric. Sensation: He is not consistent. Tongue was midline. He had normal strength in upper and lower extremities bilaterally. DTRs trace throughout. Toes downgoing bilaterally. Pinprick is hard to say as he had some aphasia. He can show me his left thumb, but not his right thumb. He has difficulty with repetition, although he was able to name glasses. He certainly has an expressive aphasia. LABORATORY DATA: Coags are normal today. Basic metabolic profile today normal. Creatinine 1.5, glucose is 109. Troponin CPK normal. CBC unremarkable. CTA of the brain showed some atrophy only. No acute hemorrhage. On review of the CT, old infarct is noted and a lot of diffuse atrophy and white matter changes. CTA of the brain was read as right carotid focal stenosis, right internal carotid artery and 1 cm above the bifurcation and 50-60%, nothing on the left. Proximal right vertebral artery with segmental occlusion. The left vertebral artery is patent. CTA of the head normal. It does not appear that he has major vessel occlusion on the CTA. Looks like he is left vertebral dominant. Basilar artery fills well. IMPRESSION: NIH stroke scale is a 4, but it is an aphasia and vision field cut to the right. As such, I have recommended to go ahead and get TPA. In fact, we have given that to him already. He had a little bit improvement in his language already and was able to repeat for me after the TPA. We will do an echo and Holter and see if we come up with anything else as far as a possible etiology, but with his history of coronary artery bypass grafting and negative CTAs, cardioembolic would be high on the list. MD KEYONA Will/stoney , 02:29 PM , 02:38 PM
[2018-05-13] MEDS ORDERED: Labetalol HCl Inj 100 MG/20 ML Vial IV.PUSH PRN ×2 (16:17→19:37)
[2018-05-13 16:41] LABS: Bilirubin,Urine Negative (Negative); Clarity,Urine Hazy (Clear); Color,Urine Yellow (Yellw/Straw); Glucose,Urine (UA) Negative (Negative); Hyaline Casts,Urine 9 /lpf (0-3); Leukocyte Esterase,Urine Negative (Negative); Mucus,Urine Few /lpf (Occasional); Nitrite,Urine Negative (Negative); Specific Gravity,Urine 1.019 (1.002-1.035); Squamous Epithelial Cell,Urine <1 /hpf (0-5); Urobilinogen,Urine 4 or Greater mg/dL (Less than 2)
--- NOTE | 2018-05-13 17:00 | P.HPCC ---
History of Present Illness Service: Critical care medicine Primary Care Physician: UNKNOWN Chief Complaint: Stroke alert History of Present Illness: This 83-year-old gentleman with long-standing hypertension developed the sudden onset of right arm and leg weakness, right face numbness, and slurred speech. He was brought to the emergency department early neurological workup revealed probable ischemic stroke. CAT scan of the head was normal and intracranial cerebral inflow vessels were unobstructed. 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 The patient received TPA with early improvement in right arm and right leg motor strength. He was transferred to the floor where I met him on his arrival. Because of an episode of emesis in the emergency department he received an additional head CAT scan to rule out parenchymal hemorrhage. - Diagnosis (1) Acute cerebrovascular accident (2) Hypertension Inpatient Certification: I certify that the inpatient services were ordered in accordance with Medicare regulations governing the order. This includes certification that hospital inpatient services are reasonable and necessary and in the case of services not specified as inpatient-only under 42 CFR 419.22(n), that they are appropriately provided as inpatient services in accordance to with the 2-midnight benchmark under 43 CFR 412.3(e) Estimated Total Length of Stay (Days): 2 Plans for Post Hospital Care: Home Review of Systems No chest pain or shortness of breath. unobtainable due to mental condition PMFSH - History History Provided By: Patient, Compotype Operator / EMT - Medical / Surgical Hx Neg / Unobtainable Medical Problems Denied: Unable to Obtain Surgical History: Unable to Obtain - Medical History Medical History: Medical History (Last Reviewed 05/17/18 @ 09:35 by Carey Gale) Coronary artery disease Diabetes mellitus - Surgical History Surgical History: Surgical History (Last Reviewed 05/17/18 @ 09:35 by Carey Gale) Hx of CABG Hx of joint replacement S/P ablation of atrial fibrillation - Tobacco History Second Hand Smoke Exposure: No Tobacco Use In Past 30 Days: No Smoking Status: Former smoker Tobacco Type: Cigarettes - Alcohol History How Often Do You Have a Drink Containing Alcohol: Never - Substance Use History Substance History: No History of Abuse - Travel History History of Recent Travel: No Recent Travel in the [place] Within the Last 8 Weeks: No Recent Travel Out of the Country Within the Last 8 Weeks: No - Immunization History Tetanus Immunization: <5 Years Hx Influenza Vaccine This Season: Yes Pediatric Immunizations Up to Date: No Medications and Allergies Active Medications: Active Medications Acetaminophen (Tylenol) 650 mg PO Q6H PRN PRN Reason: FEVER >101F Hydrocodone Bitart/Acetaminophen ([place] 5/325) 1 tab PO Q4H PRN PRN Reason: PAIN SCALE 1 TO 5 Al Hydroxide/Mg Hydroxide (Milk Of Magnesia Liq) 30 ml PO Q12H PRN PRN Reason: Mild Constipation Albuterol (Duoneb Neb (Prn)) 1 ampul NEB Q2HR NEB PRN PRN Reason: WHEEZING Amlodipine Besylate (Norvasc) 10 mg PO DAILY [facility] Atorvastatin Calcium (Lipitor) 20 mg PO HS [facility] Bisacodyl (Dulcolax Supp) 10 mg RECTAL DAILY PRN PRN Reason: SEVERE CONSITIPATION Chlorhexidine Gluconate (Chlorhexidine 2% Cloth) 3 pack TOPICAL DAILY@0400 [place] Stop: 05/19/18 03:59 Chlorhexidine Gluconate (Chlorhexidine 2% Cloth) 3 pack TOPICAL DAILY@0400 PRN PRN Reason: Extra cloth needed Stop: 05/19/18 03:59 Hydrochlorothiazide (Microzide) 12.5 mg PO DAILY [facility] Sodium Chloride (Ns Inj) 1,000 mls @ 84 mls/hr IV.CONT .[id number] [facility] Last Admin: 05/13/18 15:22 Dose: 84 mls/hr Labetalol HCl (Trandate Inj) 20 mg IV.PUSH Q4H PRN PRN Reason: SBP > 160 Lactulose (Lactulose Liq) 30 ml PO DAILY PRN PRN Reason: SEVERE CONSITIPATION Morphine Sulfate (Morphine Inj) 2 mg IV.PUSH Q2H PRN PRN Reason: PAIN SCALE 6 TO 10 Ondansetron HCl (Zofran Inj) 4 mg IV.PUSH Q6H PRN PRN Reason: NAUSEA OR VOMITING Pantoprazole Sodium (Protonix Inj) 40 mg IV.PUSH DAILY [facility] Last Admin: 05/13/18 15:21 Dose: 40 mg Senna/Docusate Sodium (Marina-Colace) 1 tab PO BID [facility] Sennosides (Senokot) 17.2 mg PO Q12H PRN PRN Reason: Moderate Constipation Sodium Chloride (Ns Flush) 2 ml IV.FLUSH BID [facility] Sodium Chloride (Ns Flush) 2 ml IV.FLUSH UNSCH PRN PRN Reason: FLUSH AFTER USING IV ACCESS Valsartan (Diovan) 160 mg PO DAILY [place] Allergies Allergy/AdvReac Type Severity Reaction Status Date / Time No Known Allergies Allergy Uncoded 11/29/16 07:02 Home Medications Medication Instructions Recorded Confirmed Type amlodipine-atorvastatin [Caduet] 1 tab PO DAILY 05/13/18 05/13/18 History metformin 500 mg PO BID 05/13/18 05/13/18 History valsartan-hydrochlorothiazide 1 tab PO DAILY 05/13/18 05/13/18 History Results - Labs CBC & Chem 7: 05/16/18 03:30 05/16/18 03:30 Labs: Short CBC 05/13/18 Range/Units 13:30 WBC 9.5 (4.0-11.0) th/mm3 Hgb 14.7 (13.0-17.0) gm/dL Hct 44.8 (39.0-51.0) % Plt Count 195 (150-450) th/mm3 BMP 05/13/18 13:30 Sodium 141 Potassium 3.6 Chloride 105 Carbon Dioxide 27.0 BUN 21 H Creatinine 1.51 H Calcium 8.8 Cardiac Enzymes 05/13/18 Range/Units 13:30 Total Creatine Kinase 122 (39-308) U/L Troponin I Less than 0.02 L (0.02-0.05) ng/mL - Imaging Impressions Chest X-Ray 05/13/18 13:35 CONCLUSION: 1. Mild pulmonary venous congestion. 2. Moderate compensated cardiomegaly. Head CT 05/13/18 13:35 CONCLUSION: 1. Bilateral cortical atrophy and chronic white matter changes. 2. No focal or acute intracranial hemorrhage. Report was called by Dr. Carter to Dr. Maciel at 1:50 PM Head CTA 05/13/18 13:35 CONCLUSION: 1. Unremarkable MRA of the brain. Neck CTA 05/13/18 13:35 CONCLUSION: 1. There is a least moderate calcified atherosclerotic plaquing at the right carotid bifurcation and proximal segment of the right internal carotid artery. There is some focal moderate stenosis of the right internal carotid artery approximately 1 cm above the bifurcation by approximately 50-60%. 2. Mild diastasis chronic changes of the left carotid artery system. No focal high-grade or significant stenosis. 3. 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 The left vertebral artery is patent throughout its extent. Head CT 05/13/18 14:33 CONCLUSION: 1. No focal or acute intracranial hemorrhage. 2. 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 3. Stable bilateral cortical atrophy and chronic white matter changes. . Exam Vital signs: Vital Signs 05/13/18 13:31 05/13/18 13:33 05/13/18 13:35 Pulse Rate 108 H 95 H Respiratory Rate 16 16 Blood Pressure 173/79 H 154/74 H Pulse Oximetry 99 99 99 05/13/18 13:43 05/13/18 13:58 05/13/18 14:16 Pulse Rate 92 H Respiratory Rate 17 Blood Pressure 153/73 H Pulse Oximetry 95 95 98 Intake & Output 05/12/18 05/13/18 05/13/18 18:59 06:59 18:59 Weight 89.3 kg Narrative: Physical exam: General: Anxious, alert. Head: Atraumatic. Neck: Supple, airway widely patent, no obstructive noises. Lungs: Clear bilaterally, comfortable respiratory pattern, no adventitious sounds. Heart: Normal S1-S2. No JVD. Abdomen: Large, soft, nondistended, no guarding, bowel sounds present. Extremities: Warm, well-perfused. No peripheral edema. Neuro: Alert and cooperative. Follows commands. Expressive aphasia. Pupillary response normal. Extraocular movements intact, tongue protrusion midline, smile and grimace symmetrical, shoulder shrug symmetrical. Left arm and leg 5/5 power. Right arm 4/5 power, right leg 5/5. Caprini VTE Risk Assessment Caprini VTE Risk Assessment: Moderate/High Risk (score >= 2) Caprini Risk Assessment Model: Point Value = 1 Point Value = 2 Point Value = 3 Point Value = 5 Age 41-60 Minor surgery BMI > 25 kg/m2 Swollen legs Varicose veins or History of unexplained or recurrent spontaneous Oral contraceptives or hormone replacement Sepsis (< 1 month) Serious lung disease, including pneumonia (< 1 month) Abnormal pulmonary function Acute myocardial infarction Congestive heart failure (< 1 month) History of inflammatory bowel disease Medical patient at bed rest Age 61-74 Arthroscopic surgery Major open surgery (> 45 min) Laparoscopic surgery (> 45 min) Malignancy Confined to bed (> 72 hours) Immobilizing plaster cast Central venous access Age >= 75 History of VTE Family history of VTE Factor V Leiden Prothrombin [id number] Lupus anticoagulant Anticardiolipin antibodies Elevated serum homocysteine Heparin-induced thrombocytopenia Other congenital or acquired thrombophilia Stroke (< 1 month) Elective arthroplasty Hip, pelvis, or leg fracture Acute spinal cord injury (< 1 month) Prophylaxis Regimen: Total Risk Factor Score Risk Level Prophylaxis Regimen 0-1 Low Early ambulation 2 Moderate Order ONE of the following: *Sequential Compression Device (SCD) *Heparin 5000 units SQ BID 3-4 Higher Order ONE of the following medications: *Heparin 5000 units SQ TID *Enoxaparin/Lovenox 40 mg SQ daily (WT < 150 kg, CrCl > 30 mL/min) *Enoxaparin/Lovenox 30 mg SQ daily (WT < 150 kg, CrCl > 10-29 mL/min) *Enoxaparin/Lovenox 30 mg SQ BID (WT < 150 kg, CrCl > 30 mL/min) AND/OR *Sequential Compression Device (SCD) 5 or more Highest Order ONE of the following medications: *Heparin 5000 units SQ TID (Preferred with Epidurals) *Enoxaparin/Lovenox 40 mg SQ daily (WT < 150 kg, CrCl > 30 mL/min) *Enoxaparin/Lovenox 30 mg SQ daily (WT < 150 kg, CrCl > 10-29 mL/min) *Enoxaparin/Lovenox 30 mg SQ BID (WT < 150 kg, CrCl > 30 mL/min) AND *Sequential Compression Device (SCD) Assessment and Plan - Problem List (1) Acute cerebrovascular accident Code(s): I63.9 - Cerebral infarction, unspecified Status: Acute (2) Hypertension Code(s): I10 - Essential (primary) hypertension Status: Chronic - Assessment and Plan Plan: Plan: 1. Maintain blood pressure less than 160 using intravenous Cardene and labetalol. 2. Serial neurological exam, repeat CAT scan immediately for any change. 3. Routine CAT scan repeat after 24 hours. 4. Protonix for GI ulcer prophylaxis. 5. Chemical DVT prophylaxis contraindicated with increased risk after TPA. 6. Substitute SCDs for DVT prophylaxis. 7. PT OT evaluation in a.m. 8. Formal swallow evaluation. 9. Lipid profile. 10. Cardiac echo. 11. Ongoing neurology evaluation. Overall impression: This gentleman is critically ill having sustained a large acute neurologic deficit involving speech and his entire right side. Blood pressure was elevated on arrival but was quickly controlled. Following an evaluation by the neurology service she received TPA after which motor function of the right upper and lower extremities was considerably improved. His expressive aphasia remains. Critical care 40 minutes. Code Status: DNR Discussed Condition With: Nurse and family. (2) Hypertension Qualifiers: Hypertension type: essential hypertension Qualified Code(s): I10 - Essential (primary) hypertension
[2018-05-13] MEDS ORDERED: niCARdipine Inj 25 MG in Sodium Chlor 0.9% Inj 240 ML IV.CONT PRN (19:38)
[2018-05-13] MEDS ORDERED: Gadobutrol PF 10 MMOL/10 ML Vial (for RAD) IV.SIG ONE (20:15)
--- NOTE | 2018-05-13 20:27 | CT ---
EXAM DATE: 05/13/2018 8:04 PM EDT AGE/SEX: 83 years / Male INDICATIONS: Seizure status post tpa. CLINICAL DATA: This is the patient's initial encounter. Patient reports that signs and symptoms have been present for 1 day and indicates a pain score of Nonresponsive. MEDICAL/SURGICAL HISTORY: Non-responsive. Non-responsive. RADIATION DOSE: 50.18 CTDI (mGy) COMPARISON: [facility] [place]/29/2016. . TECHNIQUE: CT of the head without contrast. Using automated exposure control and adjustment of the mA and/or kV according to patient size, radiation dose was kept as low as reasonably achievable to ob tain optimal diagnostic quality images. DICOM format image data is available electronically for revi ew and comparison. FINDINGS: No evidence of an evolving recent ischemic event. Small focus of chronic encephalomalacia of the left frontal lobe again seen. There is no bleed. No mass, mass effect or midline shift. Skull is intact. Paranasal sinuses and mastoid air cells are clear. CONCLUSION: 1. No bleed or other acute intracranial abnormality. 2. Small, old infarct of the left frontal lobe. 3. No evidence of evolving recent ischemic changes. . Electronically signed by: Bryce Huang MD 05/13/2018 8:26 PM EDT
--- NOTE | 2018-05-13 20:42 | MR ---
EXAM DATE: 05/13/2018 8:33 PM EDT AGE/SEX: 83 years / Male INDICATIONS: Stroke. post TPA. CLINICAL DATA: This is the patient's initial encounter. Patient reports that signs and symptoms have been present for 1 day and indicates a pain score of 0/10. MEDICAL/SURGICAL HISTORY: Hypertension. Cardiovascular disease. Hypercholesterolemia. Diabet es. CABG. Total knee replacement, left. Total knee replacement, right. Hip replacements. COMPAR[place]: [facility] [place] W 3D, 05/13/2018. [facility] [place], 05/13/2018. . TECHNIQUE: Multiplanar, multisequence examination of the brain was performed without and with 9cc ml Gadavist (gadobutrol) contrast as a single exam dose. FINDINGS: Cerebrum: The ventricles are normal for age. No evidence of midline shift, mass lesion, hemorrhage or acute infarction. No extraaxial fluid collections are seen. The pituitary gland and suprasellar cistern are normal in configuration. There is an old, small infarct of the left frontal lobe. White Matter: No significant signal abnormalities are seen in the white matter. Posterior Fossa: The cerebellum and brainstem are intact. The 4th ventricle is midline. The cerebel lopontine angle is unremarkable. The cerebellar tonsils are normal in position. Diffusion Imaging: Faint cortical based restricted diffusion of the left frontal, parietal and occip ital lobes. Extracranial: The visualized portions of the orbits and paranasal sinuses are unremarkable. Post Contrast: No abnormal areas of parenchymal or dural enhancement. No evidence of blood-brain ba rrier breakdown. CONCLUSION: 1. Broad area of acute or subacute cortical infarction of the left cerebral hemisphere as above. 2. No bleed, mass lesion or midline shift. 3. Old, small infarct of the left frontal lobe. Electronically signed by: Bryce Huang MD 05/13/2018 8:41 PM EDT
[2018-05-13] MEDS: Senna/Docusate Sodium 8.6/50 MG Tablet PO SCH (21:45)
[2018-05-13 22:03] LABS: Chol/HDL Ratio 4.02 Ratio; Free T4 (Free Thyroxine) 0.86 ng/dL (0.76-1.46); Thyroid Stimulating Hormone 5.74 uIU/mL (0.358-3.740)
[2018-05-14] MEDS ORDERED: Chlorhexidine Gluconate 2% 1 Pack (2 Cloths) TOPICAL PRN (04:00)
[2018-05-14] MEDS: Sod Chloride 0.9% Inj 1,000 ML IV.CONT SCH ×2 (05:26→15:01)
[2018-05-14] MEDS: Chlorhexidine Gluconate 2% 1 Pack (2 Cloths) TOPICAL SCH (05:26)
--- NOTE | 2018-05-14 08:29 | ECG ---
Date Performed: 05/13/2018 Time Performed: 19:29:24 PTAGE: 83 years EKG: Sinus tachycardia with PAC(s). Left anterior fascicular block Incomplete RBBB Possible ante rior infarct - age undetermined Abnormal ECG PREVIOUS TRACING : 05/13/2018 13.35 DOCTOR: Ye De Dios Interpretating Date/Time 05/14/2018 08:26:06
--- NOTE | 2018-05-14 08:37 | ECG ---
Date Performed: 05/13/2018 Time Performed: 13:35:06 PTAGE: 83 years EKG: ATRIAL FIBRILLATION WITH RAPID VENTRICULAR RESPONSE WITH ABERRANT CONDUCTION OR VENTRICULAR PREMATURE COMPLEXES INCOMPLETE RIGHT BUNDLE BRANCH BLOCK NONSPECIFIC T-WAVE ABNORMALITY ABNORMAL RHY THM ECG NO PREVIOUS TRACING DOCTOR: Ye De Dios Interpretating Date/Time 05/14/2018 08:30:09
--- NOTE | 2018-05-14 09:19 | P.PNNEU ---
Subjective Active Medications: Active Medications Acetaminophen (Tylenol) 650 mg PO Q6H PRN PRN Reason: FEVER >101F Hydrocodone Bitart/Acetaminophen ([place] 5/325) 1 tab PO Q4H PRN PRN Reason: PAIN SCALE 1 TO 5 Al Hydroxide/Mg Hydroxide (Milk Of Magnesia Liq) 30 ml PO Q12H PRN PRN Reason: Mild Constipation Albuterol (Duoneb Neb (Prn)) 1 ampul NEB Q2HR NEB PRN PRN Reason: WHEEZING Amlodipine Besylate (Norvasc) 10 mg PO DAILY [facility] Atorvastatin Calcium (Lipitor) 20 mg PO HS [facility] Last Admin: 05/13/18 21:45 Dose: Not Given Bisacodyl (Dulcolax Supp) 10 mg RECTAL DAILY PRN PRN Reason: SEVERE CONSITIPATION Chlorhexidine Gluconate (Chlorhexidine 2% Cloth) 3 pack TOPICAL DAILY@0400 [facility] Stop: 05/19/18 03:59 Last Admin: 05/14/18 05:26 Dose: 3 pack Chlorhexidine Gluconate (Chlorhexidine 2% Cloth) 3 pack TOPICAL DAILY@0400 PRN PRN Reason: Extra cloth needed Stop: 05/19/18 03:59 Hydrochlorothiazide (Microzide) 12.5 mg PO DAILY [facility] Sodium Chloride (Ns Inj) 1,000 mls @ 84 mls/hr IV.CONT .[id number] [facility] Last Admin: 05/14/18 05:26 Dose: 84 mls/hr Nicardipine HCl 25 mg/ Sodium (Chloride) 250 mls @ 50 mls/hr IV.CONT TITRATE PRN; Protocol PRN Reason: Per Protocol Levetiracetam 500 mg/ Sodium (Chloride) 105 mls @ 400 mls/hr IV.SIG Q12H [facility] Last Infusion: 05/13/18 21:42 Dose: Infused Labetalol HCl (Trandate Inj) 10 mg IV.PUSH Q1H PRN PRN Reason: SBP>180, DBP>100, HR>65 Lactulose (Lactulose Liq) 30 ml PO DAILY PRN PRN Reason: SEVERE CONSITIPATION Lorazepam (Ativan Inj) 2 mg IV.PUSH Q2H PRN PRN Reason: SEIZURES Morphine Sulfate (Morphine Inj) 2 mg IV.PUSH Q2H PRN PRN Reason: PAIN SCALE 6 TO 10 Ondansetron HCl (Zofran Inj) 4 mg IV.PUSH Q6H PRN PRN Reason: NAUSEA OR VOMITING Pantoprazole Sodium (Protonix Inj) 40 mg IV.PUSH DAILY [facility] Last Admin: 05/13/18 15:21 Dose: 40 mg Senna/Docusate Sodium (Marina-Colace) 1 tab PO BID [facility] Last Admin: 05/13/18 21:45 Dose: Not Given Sennosides (Senokot) 17.2 mg PO Q12H PRN PRN Reason: Moderate Constipation Sodium Chloride (Ns Flush) 2 ml IV.FLUSH BID [facility] Last Admin: 05/13/18 21:45 Dose: 2 ml Sodium Chloride (Ns Flush) 2 ml IV.FLUSH UNSCH PRN PRN Reason: FLUSH AFTER USING IV ACCESS Valsartan (Diovan) 160 mg PO DAILY [facility] Allergies/Adverse Reactions: Allergies Allergy/AdvReac Type Severity Reaction Status Date / Time No Known Allergies Allergy Uncoded 11/29/16 07:02 Physical Exam Vital signs: Vital Signs 05/13/18 13:31 05/13/18 13:33 05/13/18 13:35 Temperature Pulse Rate 108 H 95 H Respiratory Rate 16 16 Blood Pressure 173/79 H 154/74 H Pulse Oximetry 99 99 99 05/13/18 13:43 05/13/18 13:58 05/13/18 14:16 Temperature Pulse Rate 92 H Respiratory Rate 17 Blood Pressure 153/73 H Pulse Oximetry 95 95 98 05/13/18 16:00 05/13/18 17:00 05/13/18 20:00 Temperature 97.7 F 97.3 F L Pulse Rate 88 72 88 Respiratory Rate 19 21 18 Blood Pressure 154/81 H 158/74 H 110/78 Pulse Oximetry 98 98 93 L 05/14/18 00:00 05/14/18 04:00 05/14/18 08:00 Temperature 98.7 F 98.4 F 98.1 F Pulse Rate 74 74 81 Respiratory Rate 13 18 18 Blood Pressure 131/61 147/70 H 154/74 H Pulse Oximetry 99 98 96 Intake & Output 05/13/18 05/14/18 05/14/18 18:59 06:59 18:59 Intake Total 1572.5 / 1572.5 1105 / 1105 Output Total 950 / 950 800 / 800 Balance 622.5 / 622.5 305 / 305 Weight 89.3 kg 84.9 kg Intake: IV 1572.5 / 1572.5 1105 / 1105 NS Inj 1,000 ML @ 84 mls/hr IV. 1000 / 1000 1000 / 1000 CONT .[id number] [facility] Rx#:[id number] Activase Drip 72.5 MG In Bag/ 72.5 / 72.5 Syringe 1 EACH @ 72.5 mls/hr IV .SIG ONCE ONE Rx#:[id number] NS Inj 500 ML @ Wide Open IV. 500 / 500 SIG BOLUS ONE Rx#:[id number] Keppra Inj 500 MG In NS Inj 100 105 / 105 ML @ 400 mls/hr IV.SIG Q12H [facility] Rx#:[id number] Output: Urine Amount (Catheter) 950 / 950 800 / 800 Indwelling Urethral Catheter 950 / 950 800 / 800 Other: # Bowel Movements 0 # Incontinent Bowel Movements 0 Weight On Admission 89.3 kg Narrative: speech better can repeat and name 5/5 t/o vff face sym occ aphasic come out - Urinary Catheter Management Indwelling Urethral Catheter Cath placed during this visit: no Objective Laboratory Results - last 24 hr 05/13/18 05/13/18 05/13/18 13:30 13:30 13:30 WBC 9.5 RBC 5.87 Hgb 14.7 POC Hgb (Calc) 15.3 Hct 44.8 POC Hct 45.0 MCV 76.3 L MCH 25.0 L MCHC 32.8 RDW 15.6 Plt Count 195 MPV 7.9 Neut % (Auto) 66.5 Lymph % (Auto) 20.7 [place] % (Auto) 10.7 H Eos % (Auto) 1.4 Baso % (Auto) 0.7 Neut # (Auto) 6.3 Lymph # (Auto) 2.0 [place] # (Auto) 1.0 H Eos # (Auto) 0.1 Baso # (Auto) 0.1 WBC Differential . Differential Comment Auto diff final PT 12.5 H INR 1.2 APTT 26.7 Fibrinogen 334 POC Sodium 143 Sodium 141 POC Potassium 3.5 L Potassium 3.6 POC Chloride 102 Chloride 105 Carbon Dioxide 27.0 Anion Gap 9 POC BUN 19 BUN 21 H Creatinine 1.51 H POC Creatinine 1.3 Estimated GFR 44 L POC Glucose 114 H Random Glucose 109 H Calcium 8.8 Total Creatine Kinase 122 Troponin I Less than 0.02 L Triglycerides Cholesterol LDL Cholesterol, Calc HDL Cholesterol Cholesterol/HDL Ratio Vitamin B12 TSH Free T4 Urine Color Urine Clarity Urine pH Ur Specific [place] Urine Protein Urine Glucose (UA) Urine Ketones Urine Occult Blood Urine Nitrate Urine Bilirubin Urine Urobilinogen Ur Leukocyte Esterase Urine RBC Urine WBC Urine WBC Clumps Ur Squamous Epith Cells Hyaline Casts Urine Mucus Micro UA Comment Urine Culture Comments Nasal Screen MRSA (PCR) Blood Type Antibody Screen 05/13/18 05/13/18 05/13/18 13:30 13:30 13:31 WBC RBC Hgb POC Hgb (Calc) Hct POC Hct MCV MCH MCHC RDW Plt Count MPV Neut % (Auto) Lymph % (Auto) [place] % (Auto) Eos % (Auto) Baso % (Auto) Neut # (Auto) Lymph # (Auto) [place] # (Auto) Eos # (Auto) Baso # (Auto) WBC Differential Differential Comment PT INR APTT Fibrinogen POC Sodium Sodium POC Potassium Potassium POC Chloride Chloride Carbon Dioxide Anion Gap POC BUN BUN Creatinine POC Creatinine Estimated GFR POC Glucose 121 H Random Glucose Calcium Total Creatine Kinase Troponin I Triglycerides 207 H Cholesterol 141 LDL Cholesterol, Calc 65 HDL Cholesterol 35.0 L Cholesterol/HDL Ratio 4.02 Vitamin B12 217 TSH 5.740 H Free T4 0.86 Urine Color Urine Clarity Urine pH Ur Specific [place] Urine Protein Urine Glucose (UA) Urine Ketones Urine Occult Blood Urine Nitrate Urine Bilirubin Urine Urobilinogen Ur Leukocyte Esterase Urine RBC Urine WBC Urine WBC Clumps Ur Squamous Epith Cells Hyaline Casts Urine Mucus Micro UA Comment Urine Culture Comments Nasal Screen MRSA (PCR) Blood Type O Positive Antibody Screen Negative 05/13/18 05/13/18 14:30 16:14 WBC RBC Hgb POC Hgb (Calc) Hct POC Hct MCV MCH MCHC RDW Plt Count MPV Neut % (Auto) Lymph % (Auto) [place] % (Auto) Eos % (Auto) Baso % (Auto) Neut # (Auto) Lymph # (Auto) [place] # (Auto) Eos # (Auto) Baso # (Auto) WBC Differential Differential Comment PT INR APTT Fibrinogen POC Sodium Sodium POC Potassium Potassium POC Chloride Chloride Carbon Dioxide Anion Gap POC BUN BUN Creatinine POC Creatinine Estimated GFR POC Glucose Random Glucose Calcium Total Creatine Kinase Troponin I Triglycerides Cholesterol LDL Cholesterol, Calc HDL Cholesterol Cholesterol/HDL Ratio Vitamin B12 TSH Free T4 Urine Color Yellow Urine Clarity Hazy H Urine pH 6.0 Ur Specific [place] 1.019 Urine Protein 100 H Urine Glucose (UA) Negative Urine Ketones Trace Urine Occult Blood Negative Urine Nitrate Negative Urine Bilirubin Negative Urine Urobilinogen 4 or greater Ur Leukocyte Esterase Negative Urine RBC 2 Urine WBC 1 Urine WBC Clumps Rare H Ur Squamous Epith Cells <1 Hyaline Casts 9 Urine Mucus Few H Micro UA Comment Cath-culture ind Urine Culture Comments Cath-cult indicated Nasal Screen MRSA (PCR) Not detected Blood Type Antibody Screen Review/Management - Review/Management Plan: imp he is on keppra after three spells of stiffening last pm eeg today mri shows extensive left mca and 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
[2018-05-14] MEDS: amLODIPine 10 MG Tablet PO SCH (09:23)
[2018-05-14] MEDS: Pantoprazole Inj 40 MG Vial IV.PUSH SCH (09:23)
[2018-05-14] MEDS: Senna/Docusate Sodium 8.6/50 MG Tablet PO SCH ×2 (09:24→20:03)
--- NOTE | 2018-05-14 11:34 | P.PNCC ---
Subjective Subjective Remarks/Hospital Course: This 83-year-old gentleman with long-standing hypertension developed the sudden onset of right arm and leg weakness, right face numbness, and slurred speech. He was brought to the emergency department early neurological workup revealed probable ischemic stroke. CAT scan of the head was normal and intracranial cerebral inflow vessels were unobstructed. 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 The patient received TPA with early improvement in right arm and right leg motor strength. He was transferred to the floor where I met him on his arrival. Because of an episode of emesis in the emergency department he received an additional head CAT scan to rule out parenchymal hemorrhage. 05/14: Blood pressure control is acceptable aside from an occasional spike to 170 range. Marked improvement in right arm and leg motor function. Expressive aphasia is improved but still residual effect and difficulty finding words. Brief episode last night that appears to have been a self terminating seizure, patient is on Keppra now. EEG has been ordered by the neurology service. We will start subcu heparin 24 hours after the TPA and begin Coumadin therapy for discharge. - Diagnosis (1) Hypertension (2) Acute cerebrovascular accident Objective Vital Signs / I&O: Vital Signs 05/13/18 13:31 05/13/18 13:33 05/13/18 13:35 Temperature Pulse Rate 108 H 95 H Respiratory Rate 16 16 Blood Pressure 173/79 H 154/74 H Pulse Oximetry 99 99 99 05/13/18 13:43 05/13/18 13:58 05/13/18 14:16 Temperature Pulse Rate 92 H Respiratory Rate 17 Blood Pressure 153/73 H Pulse Oximetry 95 95 98 05/13/18 16:00 05/13/18 17:00 05/13/18 20:00 Temperature 97.7 F 97.3 F L Pulse Rate 88 72 88 Respiratory Rate 19 21 18 Blood Pressure 154/81 H 158/74 H 110/78 Pulse Oximetry 98 98 93 L 05/14/18 00:00 05/14/18 04:00 05/14/18 08:00 Temperature 98.7 F 98.4 F 98.1 F Pulse Rate 74 74 81 Respiratory Rate 13 18 18 Blood Pressure 131/61 147/70 H 154/74 H Pulse Oximetry 99 98 96 05/14/18 09:00 Temperature Pulse Rate 78 Respiratory Rate Blood Pressure Pulse Oximetry Intake & Output 05/13/18 05/14/18 05/14/18 18:59 06:59 18:59 Intake Total 1572.5 / 1572.5 1105 / 1105 105 / 105 Output Total 950 / 950 800 / 800 Balance 622.5 / 622.5 305 / 305 105 / 105 Weight 89.3 kg 84.9 kg Intake: IV 1572.5 / 1572.5 1105 / 1105 105 / 105 NS Inj 1,000 ML @ 84 mls/hr IV. 1000 / 1000 1000 / 1000 CONT .[id number] [facility] Rx#:[id number] Activase Drip 72.5 MG In Bag/ 72.5 / 72.5 Syringe 1 EACH @ 72.5 mls/hr IV .SIG ONCE ONE Rx#:[id number] NS Inj 500 ML @ Wide Open IV. 500 / 500 SIG BOLUS ONE Rx#:[id number] Keppra Inj 500 MG In NS Inj 100 105 / 105 105 / 105 ML @ 400 mls/hr IV.SIG Q12H [facility] Rx#:[id number] Output: Urine Amount (Catheter) 950 / 950 800 / 800 Indwelling Urethral Catheter 950 / 950 800 / 800 Other: # Bowel Movements 0 # Incontinent Bowel Movements 0 Weight On Admission 89.3 kg Result Diagrams: 05/13/18 13:30 05/13/18 13:30 Objective Remarks: Physical exam: General: Anxious when trying to find words, alert. Head: Atraumatic. Neck: Supple, airway widely patent, no obstructive noises. Lungs: Clear bilaterally, comfortable respiratory pattern, no adventitious sounds. Heart: Normal S1-S2. No JVD. Abdomen: Large, soft, nondistended, no guarding, bowel sounds present. Extremities: Warm, well-perfused. No peripheral edema. Neuro: Alert and cooperative. Follows commands. Expressive aphasia moderately improved. Pupillary response normal. Extraocular movements intact, tongue protrusion midline, smile and grimace symmetrical, shoulder shrug symmetrical. Left arm and leg 5/5 power. Right arm 4/5 power, right leg 5/5. Enunciation has improved. Assessment and Plan - Problem List (1) Acute cerebrovascular accident Code(s): I63.9 - Cerebral infarction, unspecified Status: Acute (2) Hypertension Code(s): I10 - Essential (primary) hypertension Status: Acute - Assessment and Plan Plan: Plan: 1. Maintain blood pressure less than 160 using intravenous Cardene and labetalol. Continue home oral meds. 2. Serial neurological exam, repeat CAT scan immediately for any change. 3. Routine CAT scan repeat after 24 hours. 4. Protonix for GI ulcer prophylaxis. 5. Chemical DVT prophylaxis to start today at 1800. 6. Substitute SCDs. 7. PT OT evaluation in a.m. 8. Formal swallow evaluation. 9. Lipid profile. 10. Cardiac echo. 11. Ongoing neurology evaluation. 12. Start heparin subcu 5000 every 8 hours at 1800 tonight. Start Coumadin tonight and aim for therapeutic INR 2.5 target, pharmacy to dose. Overall impression: This gentleman sustained a large acute neurologic deficit involving speech and his entire right side. Blood pressure was elevated on arrival but was quickly controlled. Following an evaluation by the neurology service she received TPA after which motor function of the right upper and lower extremities was considerably improved. His expressive aphasia remains but is much less of an impairment today. The neurology service has recommended long-term anticoagulation with warfarin. (2) Hypertension Qualifiers: Hypertension type: essential hypertension Qualified Code(s): I10 - Essential (primary) hypertension
[2018-05-14] MEDS: Lisinopril 20 MG Tablet PO SCH (16:50)
[2018-05-14] MEDS: Heparin - SQ 10,000 UNITS/ML Vial SQ SCH (17:12)
[2018-05-14] MEDS ORDERED: Warfarin Consult Pharmacy 1 EACH OTHER SCH (18:00)
--- NOTE | 2018-05-14 18:33 | MG ---
cc: Guzman Estes MD EEG NUMBER: [id number] INDICATION: Left hemisphere infarct. FINDINGS: Some mild to 7 Hz slowing is seen in the left hemisphere. No epileptiform or seizure activity, however, is noted. Hyperventilation is not performed. Photic stimulation is performed without significant posterior driving. IMPRESSION: Some mild left hemisphere slowing from the stroke, but no seizure activity is seen. MD KEYONA Will/ani , 05:56 PM , 06:01 PM
[2018-05-15] MEDS: Heparin - SQ 10,000 UNITS/ML Vial SQ SCH ×3 (02:00→17:17)
[2018-05-15] MEDS: Sod Chloride 0.9% Inj 1,000 ML IV.CONT SCH ×2 (05:19→17:17)
[2018-05-15] MEDS: Chlorhexidine Gluconate 2% 1 Pack (2 Cloths) TOPICAL SCH (05:19)
[2018-05-15] MEDS ORDERED: Dextrose 50% in Water 50 ML Vial IV.PUSH PRN (07:32)
--- NOTE | 2018-05-15 07:36 | P.PNIM ---
Subjective Interval history: Pt seen and examined for f/u of CVA. AFVSS. No acute events. Strength of UE and LE is nearly back to normal per patient. Still with some dysphasia but speech also improving. Denies CP or SOB. Denies paresthesias or visual changes. Physical Exam Vital signs: Vital Signs 05/14/18 08:00 05/14/18 09:00 05/14/18 12:00 Temperature 98.1 F 98.7 F Pulse Rate 81 78 65 Respiratory Rate 18 20 Blood Pressure 154/74 H 141/71 H Pulse Oximetry 96 98 05/14/18 16:00 05/14/18 20:00 05/15/18 00:00 Temperature 98.3 F 98.5 F 98.7 F Pulse Rate 74 80 70 Respiratory Rate 18 15 13 Blood Pressure 138/68 137/71 125/59 L Pulse Oximetry 97 98 97 05/15/18 04:00 Temperature 98.3 F Pulse Rate 64 Respiratory Rate 19 Blood Pressure 128/64 Pulse Oximetry 98 Intake & Output 05/14/18 05/15/18 05/15/18 18:59 06:59 18:59 Intake Total 1725 / 1725 345 / 345 Output Total 800 / 800 550 / 550 Balance 925 / 925 -205 / -205 Weight 88.1 kg Intake: IV 1105 / 1105 105 / 105 NS Inj 1,000 ML @ 84 mls/hr IV. 1000 / 1000 CONT .[id number] [facility] Rx#:[id number] Keppra Inj 500 MG In NS Inj 100 105 / 105 105 / 105 ML @ 400 mls/hr IV.SIG Q12H [facility] Rx#:[id number] Oral 620 / 620 240 / 240 Output: Urine Amount (Catheter) 800 / 800 550 / 550 Indwelling Urethral Catheter 800 / 800 550 / 550 Other: # Bowel Movements 0 0 Narrative: GENERAL: WN, WD male resting in bed in NAD. SKIN: Warm and dry. HEENT: AT/NC. Pupils equal and round. MMM. NECK: Supple no tender LAD or JVD. HEART: RRR no m/r/g. LUNGS: CTAB without wheezes or crackles. ABDOMEN: +BS, soft, NT, ND. EXTREMITIES: No LE edema. 2+ pedal pulses. NEURO: Awake and alert. Sensation intact. Asphasia. CN II-XII intact. 5/5 UE and LE strength. - Urinary Catheter Management Indwelling Urethral Catheter Cath placed during this visit: no Results - Labs CBC & Chem 7: 05/13/18 13:30 05/13/18 13:30 Microbiology 05/13/18 14:30 Catheterized Urine Urine Culture - Preliminary No growth in 24 hours - Procedures TPA 05/13/18 Assessment and Plan - Assessment (1) Acute cerebrovascular accident Code(s): I63.9 - Cerebral infarction, unspecified Status: Acute - Plan 83 year old male with history of HTN, DM, HLD, and CAD s/p CABG admitted on for CVA after presenting with acute onset R arm and leg weakness, right face numbness, and slurred speech. A stroke alert was called. Initial CT was negative for a bleed and the patient was administered TPA with improvement of his symptoms. 1. 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 Possible seizure - Patient had some episodes of stiffening and was started on Keppra - EEG showed some mild left hemisphere slowing from the stroke but no seizure activity - Will defer to neuro on whether to continue antiepileptic 3. RASHMI - Creatinine 1.51 on admission - Last creatinine to compare in 2017 was 0.9 - Recheck - Avoid nephrotoxic agents - Home ARB/HCTZ was held 3. CAD - S/P CABG - Continue ASA, statin, and FRANSISCO 4. DM - Hold home metformin - Monitor renal function - SSI per protocol - Check A1c 5. 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
--- NOTE | 2018-05-15 08:02 | P.PNNEU ---
Subjective Subjective Comments: No acute events reported No headache No chest pain No dyspnea Active Medications: Active Medications Acetaminophen (Tylenol) 650 mg PO Q6H PRN PRN Reason: FEVER >101F Hydrocodone Bitart/Acetaminophen ([employer] 5/325) 1 tab PO Q4H PRN PRN Reason: PAIN SCALE 1 TO 5 Al Hydroxide/Mg Hydroxide (Milk Of Magnjasbir Liq) 30 ml PO Q12H PRN PRN Reason: Mild Constipation Albuterol (Duoneb Neb (Prn)) 1 ampul NEB Q2HR NEB PRN PRN Reason: WHEEZING Amlodipine Besylate (Norvasc) 10 mg PO DAILY [facility] Last Admin: 05/14/18 09:23 Dose: Not Given Atorvastatin Calcium (Lipitor) 20 mg PO HS [facility] Last Admin: 05/14/18 20:03 Dose: 20 mg Bisacodyl (Dulcolax Supp) 10 mg RECTAL DAILY PRN PRN Reason: SEVERE CONSITIPATION Chlorhexidine Gluconate (Chlorhexidine 2% Cloth) 3 pack TOPICAL DAILY@0400 [facility] Stop: 05/19/18 03:59 Last Admin: 05/15/18 05:19 Dose: Not Given Chlorhexidine Gluconate (Chlorhexidine 2% Cloth) 3 pack TOPICAL DAILY@0400 PRN PRN Reason: Extra cloth needed Stop: 05/19/18 03:59 Dextrose (D50w Vial) 50 ml IV.PUSH UNSCH PRN PRN Reason: PER HYPOGLYCEMIA PROTOCOL Glucagon (Glucagon Inj) 1 mg OTHER PRN PRN PRN Reason: for Hypoglycemia Protocol Heparin Sodium (Porcine) (Heparin Inj) 5,000 units SQ Q8H [facility] Last Admin: 05/15/18 02:00 Dose: 5,000 units Sodium Chloride (Ns Inj) 1,000 mls @ 84 mls/hr IV.CONT .[id number] [facility] Last Admin: 05/15/18 05:19 Dose: Not Given Nicardipine HCl 25 mg/ Sodium (Chloride) 250 mls @ 50 mls/hr IV.CONT TITRATE PRN; Protocol PRN Reason: Per Protocol Levetiracetam 500 mg/ Sodium (Chloride) 105 mls @ 400 mls/hr IV.SIG Q12H [facility] Last Infusion: 05/14/18 21:02 Dose: Infused Pharmacy Profile Note (Coumadin Consult Pharmacy) 0 mls @ 0 mls/hr OTHER UNSCH [place] Insulin Aspart (Novolog Insulin Correctional Sugar Inj) 0 unit SQ ACHS [facility]; Protocol Labetalol HCl (Trandate Inj) 10 mg IV.PUSH Q1H PRN PRN Reason: SBP>180, DBP>100, HR>65 Lactulose (Lactulose Liq) 30 ml PO DAILY PRN PRN Reason: SEVERE CONSITIPATION Lisinopril (Prinivil) 20 mg PO DAILY [facility] Last Admin: 05/14/18 16:50 Dose: 20 mg Lorazepam (Ativan Inj) 2 mg IV.PUSH Q2H PRN PRN Reason: SEIZURES Morphine Sulfate (Morphine Inj) 2 mg IV.PUSH Q2H PRN PRN Reason: PAIN SCALE 6 TO 10 Ondansetron HCl (Zofran Inj) 4 mg IV.PUSH Q6H PRN PRN Reason: NAUSEA OR VOMITING Pantoprazole Sodium (Protonix Inj) 40 mg IV.PUSH DAILY [facility] Last Admin: 05/14/18 09:23 Dose: 40 mg Pom: Valsartan 160 (Mg/Hctz 12.5 Tablet) 0 each PO DAILY [facility] Senna/Docusate Sodium (Marina-Colace) 1 tab PO BID [facility] Last Admin: 05/14/18 20:03 Dose: 1 tab Sennosides (Senokot) 17.2 mg PO Q12H PRN PRN Reason: Moderate Constipation Sodium Chloride (Ns Flush) 2 ml IV.FLUSH BID [facility] Last Admin: 05/14/18 20:04 Dose: 2 ml Sodium Chloride (Ns Flush) 2 ml IV.FLUSH UNSCH PRN PRN Reason: FLUSH AFTER USING IV ACCESS Warfarin Sodium (Coumadin) 5 mg PO DAILY@1600 [facility] Last Admin: 05/14/18 16:51 Dose: 5 mg Allergies/Adverse Reactions: Allergies Allergy/AdvReac Type Severity Reaction Status Date / Time No Known Allergies Allergy Uncoded 11/29/16 07:02 Physical Exam Vital signs: Vital Signs 05/14/18 09:00 05/14/18 12:00 05/14/18 16:00 Temperature 98.7 F 98.3 F Pulse Rate 78 65 74 Respiratory Rate 20 18 Blood Pressure 141/71 H 138/68 Pulse Oximetry 98 97 05/14/18 20:00 05/15/18 00:00 05/15/18 04:00 Temperature 98.5 F 98.7 F 98.3 F Pulse Rate 80 70 64 Respiratory Rate 15 13 19 Blood Pressure 137/71 125/59 L 128/64 Pulse Oximetry 98 97 98 Intake & Output 05/14/18 05/15/18 05/15/18 18:59 06:59 18:59 Intake Total 1725 / 1725 345 / 345 Output Total 800 / 800 550 / 550 Balance 925 / 925 -205 / -205 Weight 88.1 kg Intake: IV 1105 / 1105 105 / 105 NS Inj 1,000 ML @ 84 mls/hr IV. 1000 / 1000 CONT .[id number] [facility] Rx#:[id number] Keppra Inj 500 MG In NS Inj 100 105 / 105 105 / 105 ML @ 400 mls/hr IV.SIG Q12H [facility] Rx#:[id number] Oral 620 / 620 240 / 240 Output: Urine Amount (Catheter) 800 / 800 550 / 550 Indwelling Urethral Catheter 800 / 800 550 / 550 Other: # Bowel Movements 0 0 Narrative: vff face sym 5/5 speech maybe a llittle worse aphasia? - Urinary Catheter Management Indwelling Urethral Catheter Cath placed during this visit: no Objective Microbiology 05/13/18 14:30 Urine Culture - Preliminary Catheterized Urine No growth in 24 hours Review/Management - Review/Management Plan: imp he is on keppra after three spells of stiffening last pm eeg today mri shows extensive left mca and funeral attendant 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 the left funeral attendant fed heavily from ant circ and some from posterior echo and holter pend trop neg labs ok sr so far on tele plan i would rx him with sq hep and coumadin after 24 post tpa fu eeg could put in loop 05/15/18 eeg neg echo pend sr so far left mca cva on coumadin we could put in loop or keep on coumadin rest of life ldl nl dc lomeli could go to tele floor
[2018-05-15] MEDS ORDERED: VALSARTAN PO SCH (09:00)
[2018-05-15] MEDS ORDERED: VALSARTAN 160 MG PO SCH (09:00)
[2018-05-15] MEDS ORDERED: HCTZ PO SCH (09:00)
--- NOTE | 2018-05-15 09:41 | CT ---
EXAM DATE: 05/15/2018 9:18 AM EDT AGE/SEX: 83 years / Male INDICATIONS: F/U intracerebral hemorrhage. CLINICAL DATA: This is the patient's subsequent encounter. Patient reports that signs and symptoms h ave been present for 2 days and indicates a pain score of 0/10. MEDICAL/SURGICAL HISTORY: Hypertension. Cerebrovascular disease. None. RADIATION DOSE: 42.53 CTDI (mGy) COMPARISON: [facility], MR HEAD W & W/O CONTRAST, 05/13/2018. . TECHNIQUE: CT of the head without contrast. Using automated exposure control and adjustment of the mA and/or kV according to patient size, radiation dose was kept as low as reasonably achievable to ob tain optimal diagnostic quality images. DICOM format image data is available electronically for revi ew and comparison. FINDINGS: Cerebrum: The ventricles are normal for age. Subtle areas of encephalomalacia are seen in the left f rontal lobe and in scattered areas of the high convexity left parietal region as well as the left occ iput/posterior parietal area. This corresponds to an old area of encephalomalacia in the left frontal region with an acute or subacute area of infarction in the left cerebral hemisphere. No intracranial hemorrhage or midline shift.. Posterior Fossa: The cerebellum and brainstem are intact. The 4th ventricle is midline. The cerebe llopontine angle is unremarkable. Extracranial: The visualized portion of the orbits is intact. Skull: The calvaria is intact. No evidence of skull fracture. CONCLUSION: 1. Stable area of encephalomalacia in the left frontal lobe. 2. Areas of diminished attenuation scattered throughout the left high convexity parietal region and left parieto-occipital watershed area correspond to regions of diffusion restriction on the prior MRI , characteristic of an acute or subacute infarct. 3. No acute intracranial hemorrhage, midline shift or new areas of infarction. Electronically signed by: Zoltan Bernabe MD 05/15/2018 9:40 AM EDT
[2018-05-15] MEDS: Insulin NovoLOG Aspart Correctional Sugar Inj SQ SCH ×4 (09:46→20:47)
[2018-05-15] MEDS: amLODIPine 10 MG Tablet PO SCH (09:47)
[2018-05-15] MEDS: Lisinopril 20 MG Tablet PO SCH (09:47)
[2018-05-15] MEDS: Pantoprazole Inj 40 MG Vial IV.PUSH SCH (09:47)
[2018-05-15] MEDS: Senna/Docusate Sodium 8.6/50 MG Tablet PO SCH ×2 (09:47→20:47)
[2018-05-15 12:25] LABS: INR 1.2 Ratio; Prothrombin Time 12.1 sec (9.8-11.6)
--- NOTE | 2018-05-15 17:08 | ECHRPT ---
Indication: CVA/TIA CONCLUSIONS Technically difficult study. The left ventricular systolic function is normal with an estimated ejection fraction in the range of 55-60%. Wall thickness is measured at the upper limits of normal. Trace mitral valve regurgitation. There is mild tricuspid valve regurgitation. BP: / HR: Rhythm: MEASUREMENTS (Male / Female) Normal Values Technical Quality:Technically difficult study 2D ECHO LV Diastolic Diameter PLAX 4.5 cm 4.2 - 5.9 / 3.9 - 5.3 cm IVS Diastolic Thickness 1.1 cm 0.6 - 1.0 / 0.6 - 0.9 cm LVPW Diastolic Thickness 0.9 cm 0.6 - 1.0 / 0.6 - 0.9 cm LV Relative Wall Thickness 0.5 RV Internal Dim ED PLAX 2.3 cm M-MODE AV Cusp Separation MM 2.0 cm DOPPLER AV Peak Velocity 181.0 cm/s AV Peak Gradient 13.1 mmHg Mitral E Point Velocity 88.2 cm/s Mitral A Point Velocity 60.5 cm/s Mitral E to A Ratio 1.5 TR Peak Velocity 226.0 cm/s TR Peak Gradient 20.4 mmHg Right Atrial Pressure 10.0 mmHg Pulmonary Artery Systolic Pressu 30.4 mmHg Right Ventricular Systolic Press 30.4 mmHg FINDINGS LEFT VENTRICLE Normal left ventricular size. Wall thickness is measured at the upper limits of normal. The left ventricular systolic function is normal with an estimated ejection fraction in the range of 55-60%. RIGHT VENTRICLE The right ventricle is mildly dilated. LEFT ATRIUM The left atrial size is normal. RIGHT ATRIUM The right atrial size is mildly dilated. ATRIAL SEPTUM Normal atrial septal thickness AORTA The aortic root and proximal ascending aorta are normal in size on limited imaging. MITRAL VALVE Mitral annular calcification is present. Trace mitral valve regurgitation. Severe thickening of the mitral valve leaflets. AORTIC VALVE The aortic valve is not well visualized. TRICUSPID VALVE There is mild tricuspid valve regurgitation. No tricuspid valve stenosis. The estimated pulmonary arterial pressure is 30 mmHg. PULMONARY VALVE The pulmonary valve is not well visualized. VESSELS The inferior vena cava is normal in size. PERICARDIUM No pericardial effusion. Ben Pichardo DO (Electronically Signed) Final Date:15 May 2018 17:07
[2018-05-16] MEDS: Heparin - SQ 10,000 UNITS/ML Vial SQ SCH ×3 (02:47→17:06)
[2018-05-16] MEDS: Chlorhexidine Gluconate 2% 1 Pack (2 Cloths) TOPICAL SCH (03:27)
[2018-05-16] MEDS: Sod Chloride 0.9% Inj 1,000 ML IV.CONT SCH ×2 (03:29→17:03)
[2018-05-16 04:23] LABS: Hematocrit 39.6 % (39.0-51.0); Hemoglobin 12.9 gm/dL (13.0-17.0); Mean Corpuscular HGB Conc 32.5 % (32.0-36.0); Mean Corpuscular Hemoglobin 25.1 pg (27.0-34.0); Mean Corpuscular Volume 77.2 fL (80.0-100.0); Mean Platelet Volume 8.4 fL (7.0-11.0); Platelet Count 151 th/mm3 (150-450); Red Blood Count 5.13 mil/mm3 (4.50-5.90); Red Cell Distribution Width 15.9 % (11.6-17.2); White Blood Count 8.6 th/mm3 (4.0-11.0)
[2018-05-16 04:31] LABS: INR 1.3 Ratio; Prothrombin Time 12.7 sec (9.8-11.6)
[2018-05-16 04:35] LABS: Calcium 7.8 mg/dL (8.5-10.1); Carbon Dioxide 25.6 meq/L (21.0-32.0); Potassium 3.5 meq/L (3.5-5.1)
--- NOTE | 2018-05-16 06:49 | HM ---
Date Performed: 05/14/2018 Time Performed: 10:57:00 HOOKUP DATE: 05/14/18 10:57:00 AM Sun ANALYSIS START TIME: 05/14/2018 11:02:00 AM ANALYSIS END TIME: 05/15/2018 10:31:54 AM PATIENT AGE: 83 PATIENT HEIGHT PATIENT WEIGHT DRUG LIST PATIENT DIAGNOSIS: ACUTE CVA TEST NARRATIVE: The patient's average heart rate was 71 BPM. No episodes of tachycardia wer e noted. Heart rates less than 50 BPM were noted 6% of the time. 3 pauses exceeding 2.0 seconds were noted. The longest pause of 3.8 seconds occurred at 04:56:28 AM Mon. 781 ventricular ectopi cs, which represented 1% of the total beat count, were noted. The highest ventricular ectopic freque ncy occurred from 07:00 PM to 08:00 PM Sun. During this time 67 VE(s) occurred. Ventricular ectopic s were observed as 756 isolated beat(s), as 11 couplet(s) and as 1 run(s). Some of the ventricular b eats occurred in bigeminal cycles. 4682 supraventricular ectopics, which represented 5% of the to nicole beat count, were noted. The highest supraventricular ectopic frequency occurred from 01:00 PM to 02:00 PM Sun. During this time 410 SVE(s) occurred. No episodes of ST depression (defined as -1 .0 mm or more) were noted in channel 1. No episodes of ST depression (defined as -1.0 mm or more) we re noted in channel 2. No episodes of ST depression (defined as -1.0 mm or more) were noted in chann el 3. TEST INTERPRETATION: The underlying rhythm is normal Sinus rhythm with a maximum heart rate of 109 beats per minute, minimum rate of 37 and an average rate of 71 beat s per minute. There are frequent blocked PACs with junctional escape PACs and couplet PACs with aberr angelica. Pauses are also noted. 1. Occasional PACs, PVCs noted at 5:22am. 2. There was a pause at length with junctional escape, probably secondary to a PAC. The longest pause was 2.8 seconds secondary to a blocked PAC and a 3.8 second pauses, also presumably during sleep at 4:56am. No obvious atrial fibr illation is noted. Signed by : Tatum Alfredo
--- NOTE | 2018-05-16 07:28 | P.PNNEU ---
Subjective Subjective Comments: sr Active Medications: Active Medications Acetaminophen (Tylenol) 650 mg PO Q6H PRN PRN Reason: FEVER >101F Hydrocodone Bitart/Acetaminophen ([place] 5/325) 1 tab PO Q4H PRN PRN Reason: PAIN SCALE 1 TO 5 Al Hydroxide/Mg Hydroxide (Milk Of Magnjasbir Liq) 30 ml PO Q12H PRN PRN Reason: Mild Constipation Albuterol (Duoneb Neb (Prn)) 1 ampul NEB Q2HR NEB PRN PRN Reason: WHEEZING Amlodipine Besylate (Norvasc) 10 mg PO DAILY [facility] Last Admin: 05/15/18 09:47 Dose: 10 mg Atorvastatin Calcium (Lipitor) 20 mg PO HS [facility] Last Admin: 05/15/18 20:47 Dose: 20 mg Bisacodyl (Dulcolax Supp) 10 mg RECTAL DAILY PRN PRN Reason: SEVERE CONSITIPATION Chlorhexidine Gluconate (Chlorhexidine 2% Cloth) 3 pack TOPICAL DAILY@0400 [facility] Stop: 05/19/18 03:59 Last Admin: 05/16/18 03:27 Dose: 3 pack Chlorhexidine Gluconate (Chlorhexidine 2% Cloth) 3 pack TOPICAL DAILY@0400 PRN PRN Reason: Extra cloth needed Stop: 05/19/18 03:59 Dextrose (D50w Vial) 50 ml IV.PUSH UNSCH PRN PRN Reason: PER HYPOGLYCEMIA PROTOCOL Glucagon (Glucagon Inj) 1 mg OTHER PRN PRN PRN Reason: for Hypoglycemia Protocol Heparin Sodium (Porcine) (Heparin Inj) 5,000 units SQ Q8H [facility] Last Admin: 05/16/18 02:47 Dose: 5,000 units Sodium Chloride (Ns Inj) 1,000 mls @ 84 mls/hr IV.CONT .[id number] [facility] Last Admin: 05/16/18 03:29 Dose: 84 mls/hr Nicardipine HCl 25 mg/ Sodium (Chloride) 250 mls @ 50 mls/hr IV.CONT TITRATE PRN; Protocol PRN Reason: Per Protocol Levetiracetam 500 mg/ Sodium (Chloride) 105 mls @ 400 mls/hr IV.SIG Q12H [facility] Last Infusion: 05/15/18 21:31 Dose: Infused Pharmacy Profile Note (Coumadin Consult Pharmacy) 0 mls @ 0 mls/hr OTHER UNSCH [facility] Insulin Aspart (Novolog Insulin Correctional Sugar Inj) 0 unit SQ [facility]; Protocol Last Admin: 05/15/18 20:47 Dose: Not Given Labetalol HCl (Trandate Inj) 10 mg IV.PUSH Q1H PRN PRN Reason: SBP>180, DBP>100, HR>65 Lactulose (Lactulose Liq) 30 ml PO DAILY PRN PRN Reason: SEVERE CONSITIPATION Lisinopril (Prinivil) 20 mg PO DAILY [facility] Last Admin: 05/15/18 09:47 Dose: 20 mg Lorazepam (Ativan Inj) 2 mg IV.PUSH Q2H PRN PRN Reason: SEIZURES Morphine Sulfate (Morphine Inj) 2 mg IV.PUSH Q2H PRN PRN Reason: PAIN SCALE 6 TO 10 Ondansetron HCl (Zofran Inj) 4 mg IV.PUSH Q6H PRN PRN Reason: NAUSEA OR VOMITING Pantoprazole Sodium (Protonix Inj) 40 mg IV.PUSH DAILY [facility] Last Admin: 05/15/18 09:47 Dose: 40 mg Pom: Valsartan 160 (Mg/Hctz 12.5 Tablet) 0 each PO DAILY [facility] Senna/Docusate Sodium (Marina-Colace) 1 tab PO BID [facility] Last Admin: 05/15/18 20:47 Dose: 1 tab Sennosides (Senokot) 17.2 mg PO Q12H PRN PRN Reason: Moderate Constipation Sodium Chloride (Ns Flush) 2 ml IV.FLUSH BID [facility] Last Admin: 05/15/18 20:48 Dose: 2 ml Sodium Chloride (Ns Flush) 2 ml IV.FLUSH UNSCH PRN PRN Reason: FLUSH AFTER USING IV ACCESS Warfarin Sodium (Coumadin) 5 mg PO DAILY@1600 [facility] Last Admin: 05/15/18 17:17 Dose: 5 mg Allergies/Adverse Reactions: Allergies Allergy/AdvReac Type Severity Reaction Status Date / Time No Known Allergies Allergy Uncoded 11/29/16 07:02 Physical Exam Vital signs: Vital Signs 05/15/18 08:00 05/15/18 09:00 05/15/18 12:00 Temperature 98.5 F 98.4 F Pulse Rate 84 70 70 Respiratory Rate 30 H 17 Blood Pressure 154/68 H 124/65 Pulse Oximetry 94 L 95 05/15/18 16:00 05/15/18 20:00 05/15/18 21:05 Temperature 98.4 F 97.9 F Pulse Rate 76 74 Respiratory Rate 31 H 23 Blood Pressure 157/67 H 131/72 Pulse Oximetry 96 96 94 L 05/16/18 00:00 05/16/18 04:00 Temperature 98.5 F 99.4 F Pulse Rate 82 78 Respiratory Rate 21 21 Blood Pressure 149/71 H 149/71 H Pulse Oximetry 95 95 Intake & Output 05/15/18 05/16/18 05/16/18 18:59 06:59 18:59 Intake Total 825 / 825 1305 / 1305 Output Total 450 / 450 1150 / 1150 Balance 375 / 375 155 / 155 Weight 87.1 kg Intake: IV 105 / 105 1105 / 1105 NS Inj 1,000 ML @ 84 mls/hr IV. 1000 / 1000 CONT .[id number] [place] Rx#:[id number] Keppra Inj 500 MG In NS Inj 100 105 / 105 105 / 105 ML @ 400 mls/hr IV.SIG Q12H [place] Rx#:[id number] Oral 720 / 720 200 / 200 Output: Urine 300 / 300 1000 / 1000 Urine Amount (Catheter) 150 / 150 150 / 150 Indwelling Urethral Catheter 150 / 150 150 / 150 Other: # Bowel Movements 0 0 Narrative: retetition better vff 5/5 - Urinary Catheter Management Indwelling Urethral Catheter Cath placed during this visit: no Objective Laboratory Results - last 24 hr 05/15/18 05/15/18 05/15/18 08:15 11:28 11:53 WBC RBC Hgb Hct MCV MCH MCHC RDW Plt Count MPV PT 12.1 H INR 1.2 Sodium Potassium Chloride Carbon Dioxide Anion Gap BUN Creatinine Estimated GFR POC Glucose 112 H 126 H Random Glucose Calcium 05/15/18 05/15/18 05/16/18 17:10 20:03 03:30 WBC RBC Hgb Hct MCV MCH MCHC RDW Plt Count MPV PT 12.7 H INR 1.3 Sodium Potassium Chloride Carbon Dioxide Anion Gap BUN Creatinine Estimated GFR POC Glucose 132 H 141 H Random Glucose Calcium 05/16/18 05/16/18 03:30 03:30 WBC 8.6 RBC 5.13 Hgb 12.9 L Hct 39.6 MCV 77.2 L MCH 25.1 L MCHC 32.5 RDW 15.9 Plt Count 151 MPV 8.4 PT INR Sodium 142 Potassium 3.5 Chloride 105 Carbon Dioxide 25.6 Anion Gap 11 BUN 14 Creatinine 1.03 Estimated GFR 69 L POC Glucose Random Glucose 113 H Calcium 7.8 L Microbiology 05/13/18 14:30 Urine Culture - Final Catheterized Urine No growth in 48 hours Review/Management - Review/Management Plan: imp he is on keppra after three spells of stiffening last pm eeg today mri shows extensive left mca and online content coordinator 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 the left online content coordinator fed heavily from ant circ and some from posterior echo and holter pend trop neg labs ok sr so far on tele plan i would rx him with sq hep and coumadin after 24 post tpa fu eeg could put in loop 05/15/18 eeg neg echo pend sr so far left mca cva on coumadin we could put in loop or keep on coumadin rest of life ldl nl dc yani could go to tele floor 05/16/18 better on coumadin echo thick mv leaf will have crds see for abn echo and loop and one 3.8 second pause on holter
[2018-05-16] MEDS: Pantoprazole Inj 40 MG Vial IV.PUSH SCH (08:31)
[2018-05-16] MEDS: amLODIPine 10 MG Tablet PO SCH (08:32)
[2018-05-16] MEDS: Lisinopril 20 MG Tablet PO SCH (08:32)
[2018-05-16] MEDS: Senna/Docusate Sodium 8.6/50 MG Tablet PO SCH ×2 (08:32→21:46)
[2018-05-16] MEDS: Insulin NovoLOG Aspart Correctional Sugar Inj SQ SCH ×4 (08:33→22:01)
--- NOTE | 2018-05-16 13:03 | P.PNIM ---
Subjective Interval history: Feeling better sitting up in chair. Visiting with family. Family does not want him going to rehab and prefers to him going home with outpatient rehab needs. Physical Exam Vital signs: Vital Signs 05/15/18 16:00 05/15/18 20:00 05/15/18 21:05 Temperature 98.4 F 97.9 F Pulse Rate 76 74 Respiratory Rate 31 H 23 Blood Pressure 157/67 H 131/72 Pulse Oximetry 96 96 94 L 05/16/18 00:00 05/16/18 04:00 Temperature 98.5 F 99.4 F Pulse Rate 82 78 Respiratory Rate 21 21 Blood Pressure 149/71 H 149/71 H Pulse Oximetry 95 95 Intake & Output 05/15/18 05/16/18 05/16/18 18:59 06:59 18:59 Intake Total 825 / 825 1305 / 1305 Output Total 450 / 450 1150 / 1150 Balance 375 / 375 155 / 155 Weight 87.1 kg Intake: IV 105 / 105 1105 / 1105 NS Inj 1,000 ML @ 84 mls/hr IV. 1000 / 1000 CONT .[id number] [place] Rx#:[id number] Keppra Inj 500 MG In NS Inj 100 105 / 105 105 / 105 ML @ 400 mls/hr IV.SIG Q12H [place] Rx#:[id number] Oral 720 / 720 200 / 200 Output: Urine 300 / 300 1000 / 1000 Urine Amount (Catheter) 150 / 150 150 / 150 Indwelling Urethral Catheter 150 / 150 150 / 150 Other: # Bowel Movements 0 0 Narrative: GENERAL: This is a well-nourished, well-developed patient, in no apparent distress. CARDIOVASCULAR: Regular rate and rhythm RESPIRATORY: Clear to auscultation. Breath sounds equal bilaterally. No wheezes , rales, or rhonchi. GASTROINTESTINAL: Abdomen soft, non-tender, nondistended. Normal active bowel sounds MUSCULOSKELETAL: Extremities without clubbing, cyanosis, or edema. 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 - Urinary Catheter Management Indwelling Urethral Catheter Cath placed during this visit: no Results - Labs CBC & Chem 7: 05/16/18 03:30 05/16/18 03:30 Laboratory Results - last 24 hr 05/15/18 05/15/18 05/16/18 17:10 20:03 03:30 WBC RBC Hgb Hct MCV MCH MCHC RDW Plt Count MPV PT 12.7 H INR 1.3 Sodium Potassium Chloride Carbon Dioxide Anion Gap BUN Creatinine Estimated GFR POC Glucose 132 H 141 H Random Glucose Calcium 05/16/18 05/16/18 05/16/18 03:30 03:30 08:06 WBC 8.6 RBC 5.13 Hgb 12.9 L Hct 39.6 MCV 77.2 L MCH 25.1 L MCHC 32.5 RDW 15.9 Plt Count 151 MPV 8.4 PT INR Sodium 142 Potassium 3.5 Chloride 105 Carbon Dioxide 25.6 Anion Gap 11 BUN 14 Creatinine 1.03 Estimated GFR 69 L POC Glucose 112 H Random Glucose 113 H Calcium 7.8 L 05/16/18 11:16 WBC RBC Hgb Hct MCV MCH MCHC RDW Plt Count MPV PT INR Sodium Potassium Chloride Carbon Dioxide Anion Gap BUN Creatinine Estimated GFR POC Glucose 162 H Random Glucose Calcium Microbiology 05/13/18 14:30 Catheterized Urine Urine Culture - Final No growth in 48 hours - Procedures TPA 05/13/18 Assessment and Plan - Assessment (1) Acute cerebrovascular accident Code(s): I63.9 - Cerebral infarction, unspecified Status: Acute - Plan 83 year old male with history of HTN, DM, HLD, and CAD s/p CABG admitted on for CVA after presenting with acute onset R arm and leg weakness, right face numbness, and slurred speech. A stroke alert was called. Initial CT was negative for a bleed and the patient was administered TPA with improvement of his symptoms. 1. 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 - Pt currently receiving SQ heparin and Coumadin with pharmacy dosing, goal INR per neuro 2.5 - Continue ASA and statin - PT/OT/ST - D/C planning to rehab however would prefer him going home. 2. Possible seizure - Patient had some episodes of stiffening and was started on Keppra - EEG showed some mild left hemisphere slowing from the stroke but no seizure activity - Will defer to neuro on whether to continue antiepileptic 3. RASHMI superimposed on chronic kidney disease stage II - Creatinine 1.51 on admission - Last creatinine to compare in 2017 was 0.9 - Recheck - Avoid nephrotoxic agents - Home ARB/HCTZ was held 3. CAD - S/P CABG - Continue ASA, statin, and FRANSISCO 4. DM type II - Hold home metformin - Monitor renal function - SSI per protocol - Check A1c 5. HTN, chronic essential - BPs stable - Home ARB/HCTZ held in light of RASHMI - Continue Norvasc and Lisinopril DVT prophylaxis: on SQ Heparin and transitioning to Coumadin, INR 1.3 today Transfer to the floor. Discharge Planning: is declining inpatient rehab and prefers to take patient home upon discharge to do outpatient rehab.
--- NOTE | 2018-05-16 16:25 | P.CONCA ---
<Teri Walter N - Last Filed: 05/16/18 15:57> History of Present Illness Service: Cardiology Consult date: 05/16/18 Requesting Physician: Guzman Bernardo Reason for Consult: Loop and mitral valve abn CVA Primary Care Provider: UNKNOWN Chief Complaint: Stroke alert History of Present Illness: This is a very pleasant 83-year-old male known to Dr. Crouch, who presents to the emergency department on 05-13-2018 with complaints of sudden onset of right arm and leg weakness, right face numbness and slurred speech. CAT scan of the head was negative for hemorrhagic stroke and patient received TPA with early improvement in the right arm and right leg motor strength. Patient has a history of CABG in 2016, coronary artery disease, proximal atrial flutter, degenerative joint disease, hypertension, diabetes type 2, hyperlipidemia, osteoarthritis, chickenpox and measles. Patient is currently sinus rhythm with PACs on telemetry. The history was obtained via review of medical records and speaking with the patient. Patient currently denies any chest pain, pressure, dizziness, palpitations, or shortness of breath. His strength appears to be equal bilaterally in upper and lower extremities. He states that he is feeling much better but does have a mild headache. A mild form of expressive aphasia is noted. Review of Systems General: Patient denies fevers, chills, and recent travel. HEENT: Patient complains of headache, sore throat, difficulty swallowing. Cardiovascular: Patient denies chest pain, dizziness. Denies sensation of heart beating rapidly or irregularly. No syncope. Respiratory: Denies shortness of breath or inspirational chest discomfort. Denies coughing wheezing or hemoptysis. GI: Patient denies nausea, vomiting, diarrhea, abdominal pain, bloody stools. Musculoskeletal: Patient denies joint pain or edema. Denies calf pain or edema. Neurovascular: Patient denies numbness, tingling, weakness in extremities. Denies headache. Endocrine: Denies polyuria and polydipsia. Hematologic: Denies easy bruising. Skin: Denies rash or itching. PMFSH - History History Provided By: Patient - Medical History Medical History: Medical History (Last Reviewed 05/16/18 @ 08:14 by Georgie Greenwood [employer] Residential Service Technician, [employer]) Coronary artery disease Diabetes mellitus - Surgical History Surgical History: Surgical History (Last Updated 05/14/18 @ 15:08 by Cara Gaming RN) Hx of CABG Hx of joint replacement S/P ablation of atrial fibrillation - Tobacco History Second Hand Smoke Exposure: No Tobacco Use In Past 30 Days: No Smoking Status: Former smoker Tobacco Type: Cigarettes - Alcohol History How Often Do You Have a Drink Containing Alcohol: Never - Substance Use History Substance History: No History of Abuse - Travel History Recent Travel in the [place] Within the Last 8 Weeks: No Recent Travel Out of the Country Within the Last 8 Weeks: No - Immunization History Tetanus Immunization: <5 Years Hx Influenza Vaccine This Season: Yes Medications and Allergies Allergies Allergy/AdvReac Type Severity Reaction Status Date / Time No Known Allergies Allergy Uncoded 11/29/16 07:02 Home Medications Medication Instructions Recorded Confirmed Type amlodipine-atorvastatin [Caduet] 1 tab PO DAILY 05/13/18 05/13/18 History metformin 500 mg PO BID 05/13/18 05/13/18 History valsartan-hydrochlorothiazide 1 tab PO DAILY 05/13/18 05/13/18 History Active Medications: Active Medications Acetaminophen (Tylenol) 650 mg PO Q6H PRN PRN Reason: FEVER >101F Hydrocodone Bitart/Acetaminophen ([place] 5/325) 1 tab PO Q4H PRN PRN Reason: PAIN SCALE 1 TO 5 Al Hydroxide/Mg Hydroxide (Milk Of Magnesia Liq) 30 ml PO Q12H PRN PRN Reason: Mild Constipation Albuterol (Duoneb Neb (Prn)) 1 ampul NEB Q2HR NEB PRN PRN Reason: WHEEZING Amlodipine Besylate (Norvasc) 10 mg PO DAILY [facility] Last Admin: 05/16/18 08:32 Dose: 10 mg Atorvastatin Calcium (Lipitor) 20 mg PO HS [facility] Last Admin: 05/15/18 20:47 Dose: 20 mg Bisacodyl (Dulcolax Supp) 10 mg RECTAL DAILY PRN PRN Reason: SEVERE CONSITIPATION Chlorhexidine Gluconate (Chlorhexidine 2% Cloth) 3 pack TOPICAL DAILY@0400 [facility] Stop: 05/19/18 03:59 Last Admin: 05/16/18 03:27 Dose: 3 pack Chlorhexidine Gluconate (Chlorhexidine 2% Cloth) 3 pack TOPICAL DAILY@0400 PRN PRN Reason: Extra cloth needed Stop: 05/19/18 03:59 Dextrose (D50w Vial) 50 ml IV.PUSH UNSCH PRN PRN Reason: PER HYPOGLYCEMIA PROTOCOL Glucagon (Glucagon Inj) 1 mg OTHER PRN PRN PRN Reason: for Hypoglycemia Protocol Heparin Sodium (Porcine) (Heparin Inj) 5,000 units SQ Q8H [facility] Last Admin: 05/16/18 11:19 Dose: 5,000 units Sodium Chloride (Ns Inj) 1,000 mls @ 84 mls/hr IV.CONT .[id number] [facility] Last Admin: 05/16/18 03:29 Dose: 84 mls/hr Nicardipine HCl 25 mg/ Sodium (Chloride) 250 mls @ 50 mls/hr IV.CONT TITRATE PRN; Protocol PRN Reason: Per Protocol Levetiracetam 500 mg/ Sodium (Chloride) 105 mls @ 400 mls/hr IV.SIG Q12H [facility] Last Infusion: 05/16/18 15:54 Dose: Infused Pharmacy Profile Note (Coumadin Consult Pharmacy) 0 mls @ 0 mls/hr OTHER UNSCH [facility] Insulin Aspart (Novolog Insulin Correctional Sugar Inj) 0 unit SQ ACHS [facility]; Protocol Last Admin: 05/16/18 11:19 Dose: 1 unit Labetalol HCl (Trandate Inj) 10 mg IV.PUSH Q1H PRN PRN Reason: SBP>180, DBP>100, HR>65 Lactulose (Lactulose Liq) 30 ml PO DAILY PRN PRN Reason: SEVERE CONSITIPATION Lisinopril (Prinivil) 20 mg PO DAILY [facility] Last Admin: 05/16/18 08:32 Dose: 20 mg Lorazepam (Ativan Inj) 2 mg IV.PUSH Q2H PRN PRN Reason: SEIZURES Morphine Sulfate (Morphine Inj) 2 mg IV.PUSH Q2H PRN PRN Reason: PAIN SCALE 6 TO 10 Ondansetron HCl (Zofran Inj) 4 mg IV.PUSH Q6H PRN PRN Reason: NAUSEA OR VOMITING Pantoprazole Sodium (Protonix Inj) 40 mg IV.PUSH DAILY [facility] Last Admin: 05/16/18 08:31 Dose: 40 mg Pom: Valsartan 160 (Mg/Hctz 12.5 Tablet) 0 each PO DAILY [facility] Senna/Docusate Sodium (Marina-Colace) 1 tab PO BID [facility] Last Admin: 05/16/18 08:32 Dose: 1 tab Sennosides (Senokot) 17.2 mg PO Q12H PRN PRN Reason: Moderate Constipation Sodium Chloride (Ns Flush) 2 ml IV.FLUSH BID [facility] Last Admin: 05/16/18 08:33 Dose: Not Given Sodium Chloride (Ns Flush) 2 ml IV.FLUSH UNSCH PRN PRN Reason: FLUSH AFTER USING IV ACCESS Warfarin Sodium (Coumadin) 5 mg PO DAILY@1600 [facility] Last Admin: 05/15/18 17:17 Dose: 5 mg Warfarin Sodium (Coumadin) 2 mg PO ONCE ONE Stop: 05/16/18 16:01 Exam Vital signs: Vital Signs 05/15/18 16:00 05/15/18 20:00 05/15/18 21:05 Temperature 98.4 F 97.9 F Pulse Rate 76 74 Respiratory Rate 31 H 23 Blood Pressure 157/67 H 131/72 Pulse Oximetry 96 96 94 L 05/16/18 00:00 05/16/18 04:00 05/16/18 08:00 Temperature 98.5 F 99.4 F 98.3 F Pulse Rate 82 78 80 Respiratory Rate 21 21 29 H Blood Pressure 149/71 H 149/71 H 174/90 H Pulse Oximetry 95 95 96 05/16/18 09:00 05/16/18 12:00 Temperature 97.9 F Pulse Rate 80 78 Respiratory Rate 23 Blood Pressure 149/77 H Pulse Oximetry 98 Intake & Output 05/15/18 05/16/18 05/16/18 18:59 06:59 18:59 Intake Total 825 / 825 1305 / 1305 105 / 105 Output Total 450 / 450 1150 / 1150 Balance 375 / 375 155 / 155 105 / 105 Weight 87.1 kg Intake: IV 105 / 105 1105 / 1105 105 / 105 NS Inj 1,000 ML @ 84 mls/hr IV. 1000 / 1000 CONT .[id number] [facility] Rx#:[id number] Keppra Inj 500 MG In NS Inj 100 105 / 105 105 / 105 105 / 105 ML @ 400 mls/hr IV.SIG Q12H [facility] Rx#:[id number] Oral 720 / 720 200 / 200 Output: Urine 300 / 300 1000 / 1000 Urine Amount (Catheter) 150 / 150 150 / 150 Indwelling Urethral Catheter 150 / 150 150 / 150 Other: # Bowel Movements 0 0 Narrative: GENERAL: This is a well-nourished, well-developed patient, in no apparent distress. Patient speaks in clear but has mild expressive aphasia. Patient is pleasant. HEENT: Head is atraumatic and normocephalic. Neck is supple without lymphadenopathy and trachea is midline. No JVD or carotid bruits. CARDIOVASCULAR: Atrial fib to sinus rhythm without murmurs, gallops, or rubs. RESPIRATORY: Clear to auscultation. Breath sounds equal bilaterally. No wheezes , rales, or rhonchi. Chest wall is nontender. No use of accessory muscles. GASTROINTESTINAL: Abdomen is nontender, nondistended. Abdomen soft. No obvious pulsatile mass or bruit. No CVA tenderness. Strong femoral pulses bilaterally. Normal bowel sounds in all quadrants. MUSCULOSKELETAL: Patient is moving upper and lower extremities freely. No calf tenderness or edema, no Homans sign. Strong pulses in upper and lower extremities. NEUROLOGICAL: Patient is alert and oriented. Mild expressive aphasia SKIN: No rash and turgor is normal. Results 05/16/18 03:30 05/16/18 03:30 Coagulation 05/16/18 Range/Units 03:30 PT 12.7 H (9.8-11.6) sec CBC 05/16/18 Range/Units 03:30 WBC 8.6 (4.0-11.0) th/mm3 RBC 5.13 (4.50-5.90) mil/mm3 Hgb 12.9 L (13.0-17.0) gm/dL Hct 39.6 (39.0-51.0) % Plt Count 151 (150-450) th/mm3 Comprehensive Metabolic Panel 05/16/18 Range/Units 03:30 Sodium 142 (136-145) meq/L Potassium 3.5 (3.5-5.1) meq/L Chloride 105 (98-107) meq/L Carbon Dioxide 25.6 (21.0-32.0) meq/L BUN 14 (7-18) mg/dL Creatinine 1.03 (0.60-1.30) mg/dL Calcium 7.8 L (8.5-10.1) mg/dL Intake and Output 05/16/18 05/16/18 05/16/18 06:59 14:59 22:59 Intake Total 1200 / 1200 105 / 105 Output Total 1150 / 1150 Balance 50 / 50 105 / 105 Intake: IV 1000 / 1000 105 / 105 NS Inj 1,000 ML @ 84 mls/hr IV. 1000 / 1000 CONT .[id number] [facility] Rx#:[id number] Keppra Inj 500 MG In NS Inj 100 105 / 105 ML @ 400 mls/hr IV.SIG Q12H [facility] Rx#:[id number] Oral 200 / 200 Output: Urine 1000 / 1000 Urine Amount (Catheter) 150 / 150 Indwelling Urethral Catheter 150 / 150 Other: # Bowel Movements 0 Weight 87.1 kg Assessment and Plan - Assessment (1) Atrial fibrillation Code(s): I48.91 - Unspecified atrial fibrillation Status: Acute (2) Acute cerebrovascular accident Code(s): I63.9 - Cerebral infarction, unspecified Status: Acute (3) Hypertension Code(s): I10 - Essential (primary) hypertension Status: Acute - Plan PT evaluation in progress. Speech therapy evaluation in progress. Neurological evaluation in progress. Continue with current cardiac treatment plan. We will follow during hospitalization and adjust cardiac treatment plan as needed. Patient was seen and evaluated by Dr. Watson who participated in care, management and decision-making. <Gil Watson - Last Filed: 05/16/18 18:14> History of Present Illness Primary Care Provider: UNKNOWN [facility] - Medical History Medical History: Medical History (Last Reviewed 05/16/18 @ 08:14 by Georgie Greenwood [employer] Residential Service Technician, [employer]) Coronary artery disease Diabetes mellitus - Surgical History Surgical History: Surgical History (Last Updated 05/14/18 @ 15:08 by Cara Gaming RN) Hx of CABG Hx of joint replacement S/P ablation of atrial fibrillation Medications and Allergies Active Medications: Active Medications Acetaminophen (Tylenol) 650 mg PO Q6H PRN PRN Reason: FEVER >101F Hydrocodone Bitart/Acetaminophen ([place] 5/325) 1 tab PO Q4H PRN PRN Reason: PAIN SCALE 1 TO 5 Al Hydroxide/Mg Hydroxide (Milk Of Magnesia Liq) 30 ml PO Q12H PRN PRN Reason: Mild Constipation Albuterol (Duoneb Neb (Prn)) 1 ampul NEB Q2HR NEB PRN PRN Reason: WHEEZING Amlodipine Besylate (Norvasc) 10 mg PO DAILY [facility] Last Admin: 05/16/18 08:32 Dose: 10 mg Atorvastatin Calcium (Lipitor) 20 mg PO HS [facility] Last Admin: 05/15/18 20:47 Dose: 20 mg Bisacodyl (Dulcolax Supp) 10 mg RECTAL DAILY PRN PRN Reason: SEVERE CONSITIPATION Chlorhexidine Gluconate (Chlorhexidine 2% Cloth) 3 pack TOPICAL DAILY@0400 [facility] Stop: 05/19/18 03:59 Last Admin: 05/16/18 03:27 Dose: 3 pack Chlorhexidine Gluconate (Chlorhexidine 2% Cloth) 3 pack TOPICAL DAILY@0400 PRN PRN Reason: Extra cloth needed Stop: 05/19/18 03:59 Dextrose (D50w Vial) 50 ml IV.PUSH UNSCH PRN PRN Reason: PER HYPOGLYCEMIA PROTOCOL Glucagon (Glucagon Inj) 1 mg OTHER PRN PRN PRN Reason: for Hypoglycemia Protocol Heparin Sodium (Porcine) (Heparin Inj) 5,000 units SQ Q8H [facility] Last Admin: 05/16/18 17:06 Dose: 5,000 units Sodium Chloride (Ns Inj) 1,000 mls @ 84 mls/hr IV.CONT .[id number] [facility] Last Admin: 05/16/18 17:03 Dose: 84 mls/hr Nicardipine HCl 25 mg/ Sodium (Chloride) 250 mls @ 50 mls/hr IV.CONT TITRATE PRN; Protocol PRN Reason: Per Protocol Levetiracetam 500 mg/ Sodium (Chloride) 105 mls @ 400 mls/hr IV.SIG Q12H [facility] Last Infusion: 05/16/18 15:54 Dose: Infused Pharmacy Profile Note (Coumadin Consult Pharmacy) 0 mls @ 0 mls/hr OTHER UNSCH [facility] Insulin Aspart (Novolog Insulin Correctional Sugar Inj) 0 unit SQ ACHS [facility]; Protocol Last Admin: 05/16/18 17:06 Dose: Not Given Labetalol HCl (Trandate Inj) 10 mg IV.PUSH Q1H PRN PRN Reason: SBP>180, DBP>100, HR>65 Lactulose (Lactulose Liq) 30 ml PO DAILY PRN PRN Reason: SEVERE CONSITIPATION Lisinopril (Prinivil) 20 mg PO DAILY [facility] Last Admin: 05/16/18 08:32 Dose: 20 mg Lorazepam (Ativan Inj) 2 mg IV.PUSH Q2H PRN PRN Reason: SEIZURES Morphine Sulfate (Morphine Inj) 2 mg IV.PUSH Q2H PRN PRN Reason: PAIN SCALE 6 TO 10 Ondansetron HCl (Zofran Inj) 4 mg IV.PUSH Q6H PRN PRN Reason: NAUSEA OR VOMITING Pantoprazole Sodium (Protonix Inj) 40 mg IV.PUSH DAILY [facility] Last Admin: 05/16/18 08:31 Dose: 40 mg Pom: Valsartan 160 (Mg/Hctz 12.5 Tablet) 0 each PO DAILY [facility] Senna/Docusate Sodium (Marina-Colace) 1 tab PO BID [facility] Last Admin: 05/16/18 08:32 Dose: 1 tab Sennosides (Senokot) 17.2 mg PO Q12H PRN PRN Reason: Moderate Constipation Sodium Chloride (Ns Flush) 2 ml IV.FLUSH BID [facility] Last Admin: 05/16/18 08:33 Dose: Not Given Sodium Chloride (Ns Flush) 2 ml IV.FLUSH UNSCH PRN PRN Reason: FLUSH AFTER USING IV ACCESS Warfarin Sodium (Coumadin) 5 mg PO DAILY@1600 [facility] Last Admin: 05/16/18 16:58 Dose: 5 mg Exam Vital signs: Vital Signs 05/15/18 20:00 05/15/18 21:05 05/16/18 00:00 Temperature 97.9 F 98.5 F Pulse Rate 74 82 Respiratory Rate 23 21 Blood Pressure 131/72 149/71 H Pulse Oximetry 96 94 L 95 05/16/18 04:00 05/16/18 08:00 05/16/18 09:00 Temperature 99.4 F 98.3 F Pulse Rate 78 80 80 Respiratory Rate 21 29 H Blood Pressure 149/71 H 174/90 H Pulse Oximetry 95 96 05/16/18 12:00 05/16/18 16:00 Temperature 97.9 F 98.2 F Pulse Rate 78 79 Respiratory Rate 23 18 Blood Pressure 149/77 H Pulse Oximetry 98 96 Intake & Output 05/15/18 05/16/18 05/16/18 18:59 06:59 18:59 Intake Total 825 / 825 1305 / 1305 1105 / 1105 Output Total 450 / 450 1150 / 1150 Balance 375 / 375 155 / 155 1105 / 1105 Weight 192 lb 0.362 oz 189 lb 13.088 oz Intake: IV 105 / 105 1105 / 1105 1105 / 1105 NS Inj 1,000 ML @ 84 mls/hr IV. 1000 / 1000 1000 / 1000 CONT .[id number] [facility] Rx#:[id number] Keppra Inj 500 MG In NS Inj 100 105 / 105 105 / 105 105 / 105 ML @ 400 mls/hr IV.SIG Q12H [facility] Rx#:[id number] Oral 720 / 720 200 / 200 Output: Urine 300 / 300 1000 / 1000 Urine Amount (Catheter) 150 / 150 150 / 150 Indwelling Urethral Catheter 150 / 150 150 / 150 Other: # Bowel Movements 0 0 Results 05/16/18 03:30 05/16/18 03:30 Coagulation 05/16/18 Range/Units 03:30 PT 12.7 H (9.8-11.6) sec CBC 05/16/18 Range/Units 03:30 WBC 8.6 (4.0-11.0) th/mm3 RBC 5.13 (4.50-5.90) mil/mm3 Hgb 12.9 L (13.0-17.0) gm/dL Hct 39.6 (39.0-51.0) % Plt Count 151 (150-450) th/mm3 Comprehensive Metabolic Panel 05/16/18 Range/Units 03:30 Sodium 142 (136-145) meq/L Potassium 3.5 (3.5-5.1) meq/L Chloride 105 (98-107) meq/L Carbon Dioxide 25.6 (21.0-32.0) meq/L BUN 14 (7-18) mg/dL Creatinine 1.03 (0.60-1.30) mg/dL Calcium 7.8 L (8.5-10.1) mg/dL Intake and Output 05/16/18 05/16/18 05/16/18 06:59 14:59 22:59 Intake Total 1200 / 1200 1105 / 1105 Output Total 1150 / 1150 Balance 50 / 50 1105 / 1105 Intake: IV 1000 / 1000 1105 / 1105 NS Inj 1,000 ML @ 84 mls/hr IV. 1000 / 1000 1000 / 1000 CONT .[id number] [facility] Rx#:[id number] Keppra Inj 500 MG In NS Inj 100 105 / 105 ML @ 400 mls/hr IV.SIG Q12H [facility] Rx#:[id number] Oral 200 / 200 Output: Urine 1000 / 1000 Urine Amount (Catheter) 150 / 150 Indwelling Urethral Catheter 150 / 150 Other: # Bowel Movements 0 Weight 192 lb 0.362 oz 189 lb 13.088 oz Patient Weight 05/17/18 06:59 Weight 189 lb 13.088 oz Assessment and Plan - Assessment (1) Atrial fibrillation Code(s): I48.91 - Unspecified atrial fibrillation Status: Acute (2) Acute cerebrovascular accident Code(s): I63.9 - Cerebral infarction, unspecified Status: Acute (3) Hypertension Code(s): I10 - Essential (primary) hypertension Status: Acute - Attending Attestation Patient seen and examined. I reviewed and agree with the evaluation and plan as presented. H/o a flutter, recommend full anticoagulation with NOAC rather than warfarin. Will start Xarelto. F/u w Dr. Crouch after discharge. <Teri Walter - Last Filed: 05/16/18 15:57> (3) Hypertension Qualifiers: Hypertension type: essential hypertension Qualified Code(s): I10 - Essential (primary) hypertension <Gil Watson - Last Filed: 05/16/18 18:14> (3) Hypertension Qualifiers: Hypertension type: essential hypertension Qualified Code(s): I10 - Essential (primary) hypertension
[2018-05-17 04:27] VITALS: O2SAT 96
[2018-05-17] MEDS: Heparin - SQ 10,000 UNITS/ML Vial SQ SCH ×2 (04:42→09:00)
[2018-05-17] MEDS: Sod Chloride 0.9% Inj 1,000 ML IV.CONT SCH (04:45)
[2018-05-17] MEDS: Chlorhexidine Gluconate 2% 1 Pack (2 Cloths) TOPICAL SCH (05:48)
[2018-05-17 06:16] LABS: INR 1.6 Ratio; Prothrombin Time 16.4 sec (9.8-11.6)
--- NOTE | 2018-05-17 07:28 | P.PNNEU ---
Subjective Subjective Comments: cards saw and noted AFIB Active Medications: Active Medications Acetaminophen (Tylenol) 650 mg PO Q6H PRN PRN Reason: FEVER >101F Hydrocodone Bitart/Acetaminophen ([place] 5/325) 1 tab PO Q4H PRN PRN Reason: PAIN SCALE 1 TO 5 Al Hydroxide/Mg Hydroxide (Milk Of Magnjasbir Liq) 30 ml PO Q12H PRN PRN Reason: Mild Constipation Albuterol (Duoneb Neb (Prn)) 1 ampul NEB Q2HR NEB PRN PRN Reason: WHEEZING Amlodipine Besylate (Norvasc) 10 mg PO DAILY [facility] Last Admin: 05/16/18 08:32 Dose: 10 mg Atorvastatin Calcium (Lipitor) 20 mg PO HS [facility] Last Admin: 05/16/18 21:46 Dose: 20 mg Bisacodyl (Dulcolax Supp) 10 mg RECTAL DAILY PRN PRN Reason: SEVERE CONSITIPATION Chlorhexidine Gluconate (Chlorhexidine 2% Cloth) 3 pack TOPICAL DAILY@0400 [facility] Stop: 05/19/18 03:59 Last Admin: 05/17/18 05:48 Dose: Not Given Chlorhexidine Gluconate (Chlorhexidine 2% Cloth) 3 pack TOPICAL DAILY@0400 PRN PRN Reason: Extra cloth needed Stop: 05/19/18 03:59 Dextrose (D50w Vial) 50 ml IV.PUSH UNSCH PRN PRN Reason: PER HYPOGLYCEMIA PROTOCOL Glucagon (Glucagon Inj) 1 mg OTHER PRN PRN PRN Reason: for Hypoglycemia Protocol Heparin Sodium (Porcine) (Heparin Inj) 5,000 units SQ Q8H [facility] Last Admin: 05/17/18 04:42 Dose: 5,000 units Sodium Chloride (Ns Inj) 1,000 mls @ 84 mls/hr IV.CONT .[id number] [facility] Last Admin: 05/17/18 04:45 Dose: 84 mls/hr Nicardipine HCl 25 mg/ Sodium (Chloride) 250 mls @ 50 mls/hr IV.CONT TITRATE PRN; Protocol PRN Reason: Per Protocol Levetiracetam 500 mg/ Sodium (Chloride) 105 mls @ 400 mls/hr IV.SIG Q12H [facility] Last Infusion: 05/17/18 06:36 Dose: Infused Pharmacy Profile Note (Coumadin Consult Pharmacy) 0 mls @ 0 mls/hr OTHER UNSCH [facility] Insulin Aspart (Novolog Insulin Correctional Sugar Inj) 0 unit SQ ACHS [facility]; Protocol Last Admin: 05/16/18 22:01 Dose: 1 unit Labetalol HCl (Trandate Inj) 10 mg IV.PUSH Q1H PRN PRN Reason: SBP>180, DBP>100, HR>65 Lactulose (Lactulose Liq) 30 ml PO DAILY PRN PRN Reason: SEVERE CONSITIPATION Lisinopril (Prinivil) 20 mg PO DAILY [facility] Last Admin: 05/16/18 08:32 Dose: 20 mg Lorazepam (Ativan Inj) 2 mg IV.PUSH Q2H PRN PRN Reason: SEIZURES Morphine Sulfate (Morphine Inj) 2 mg IV.PUSH Q2H PRN PRN Reason: PAIN SCALE 6 TO 10 Ondansetron HCl (Zofran Inj) 4 mg IV.PUSH Q6H PRN PRN Reason: NAUSEA OR VOMITING Pantoprazole Sodium (Protonix Inj) 40 mg IV.PUSH DAILY [facility] Last Admin: 05/16/18 08:31 Dose: 40 mg Pom: Valsartan 160 (Mg/Hctz 12.5 Tablet) 0 each PO DAILY [facility] Senna/Docusate Sodium (Marina-Colace) 1 tab PO BID [facility] Last Admin: 05/16/18 21:46 Dose: 1 tab Sennosides (Senokot) 17.2 mg PO Q12H PRN PRN Reason: Moderate Constipation Sodium Chloride (Ns Flush) 2 ml IV.FLUSH BID [facility] Last Admin: 05/16/18 21:47 Dose: 2 ml Sodium Chloride (Ns Flush) 2 ml IV.FLUSH UNSCH PRN PRN Reason: FLUSH AFTER USING IV ACCESS Warfarin Sodium (Coumadin) 5 mg PO DAILY@1600 [facility] Last Admin: 05/16/18 16:58 Dose: 5 mg Allergies/Adverse Reactions: Allergies Allergy/AdvReac Type Severity Reaction Status Date / Time No Known Allergies Allergy Uncoded 11/29/16 07:02 Physical Exam Vital signs: Vital Signs 05/16/18 08:00 05/16/18 09:00 05/16/18 12:00 Temperature 98.3 F 97.9 F Pulse Rate 80 80 78 Respiratory Rate 29 H 23 Blood Pressure 174/90 H 149/77 H Pulse Oximetry 96 98 05/16/18 16:00 05/16/18 20:00 05/17/18 00:00 Temperature 98.2 F 98.2 F 98.0 F Pulse Rate 79 76 74 Respiratory Rate 18 18 16 Blood Pressure 166/79 H 125/68 Pulse Oximetry 96 97 95 05/17/18 04:00 Temperature 98.4 F Pulse Rate 84 Respiratory Rate 16 Blood Pressure 159/79 H Pulse Oximetry 96 Intake & Output 05/16/18 05/17/18 05/17/18 18:59 06:59 18:59 Intake Total 1105 / 1105 1345 / 1345 Output Total 400 / 400 Balance 705 / 705 1345 / 1345 Weight 86.1 kg Intake: IV 1105 / 1105 1105 / 1105 NS Inj 1,000 ML @ 84 mls/hr IV. 1000 / 1000 1000 / 1000 CONT .[id number] [facility] Rx#:[id number] Keppra Inj 500 MG In NS Inj 100 105 / 105 105 / 105 ML @ 400 mls/hr IV.SIG Q12H [facility] Rx#:[id number] Oral 240 / 240 Output: Urine 400 / 400 Other: # Voids 2 Date of Last Bowel Movement 05/16/18 Narrative: up walking halls speech better - Urinary Catheter Management Indwelling Urethral Catheter Cath placed during this visit: no Objective Laboratory Results - last 24 hr 05/16/18 05/16/18 05/16/18 08:06 11:16 17:00 PT INR POC Glucose 112 H 162 H 149 H 05/16/18 05/17/18 21:43 04:47 PT 16.4 H INR 1.6 POC Glucose 164 H Review/Management - Review/Management Plan: imp he is on keppra after three spells of stiffening last pm eeg today mri shows extensive left mca and manager of planning 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 the left manager of planning fed heavily from ant circ and some from posterior echo and holter pend trop neg labs ok sr so far on tele plan i would rx him with sq hep and coumadin after 24 post tpa fu eeg could put in loop 05/15/18 eeg neg echo pend sr so far left mca cva on coumadin we could put in loop or keep on coumadin rest of life ldl nl dc lomeli could go to tele floor 05/16/18 better on coumadin echo thick mv leaf will have crds see for abn echo and loop and one 3.8 second pause on holter 05/17/18 cards noted afib in their note as such rec change to xarelto so team should dc hep and coumadin , eat greens and change to xarelto and can dc
[2018-05-17] MEDS: amLODIPine 10 MG Tablet PO SCH (08:57)
[2018-05-17] MEDS: Pantoprazole Inj 40 MG Vial IV.PUSH SCH (08:57)
[2018-05-17] MEDS: Senna/Docusate Sodium 8.6/50 MG Tablet PO SCH (08:57)
[2018-05-17] MEDS: Lisinopril 20 MG Tablet PO SCH (08:57)
[2018-05-17] MEDS: Insulin NovoLOG Aspart Correctional Sugar Inj SQ SCH (08:58)
[2018-05-17 09:16] VITALS: BP 173/80; PULSE 86; RESP 18; TEMP 98.8
--- NOTE | 2018-05-17 09:27 | P.DS ---
Date of admission: 05/13/18 15:00 Primary care physician: UNKNOWN Anticipated date of discharge: 05/17/18 Brief History from admission: This 83-year-old gentleman with long-standing hypertension developed the sudden onset of right arm and leg weakness, right face numbness, and slurred speech. He was brought to the emergency department early neurological workup revealed probable ischemic stroke. CAT scan of the head was normal and intracranial cerebral inflow vessels were unobstructed. 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 The patient received TPA with early improvement in right arm and right leg motor strength. He was transferred to the floor where I met him on his arrival. Because of an episode of emesis in the emergency department he received an additional head CAT scan to rule out parenchymal hemorrhage. DS: Diagnosis - Discharge Diagnosis (1) Acute cerebrovascular accident Status: Acute Diagnosis: Principal (2) Hypertension Status: Chronic Diagnosis: Secondary (3) Atrial fibrillation Status: Chronic Diagnosis: Secondary DS: Summary Hospital Course: These are the medical issues addressed during this hospitalization: 83 year old male with history of HTN, DM, HLD, and CAD s/p CABG admitted on for CVA after presenting with acute onset R arm and leg weakness, right face numbness, and slurred speech. A stroke alert was called. Initial CT was negative for a bleed and the patient was administered TPA with improvement of his symptoms. 1. 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 However, cardiology also evaluated the patient per neurology's request and recommended Xarelto for patient's history of atrial fibrillation. - Pt currently receiving SQ heparin and Coumadin with pharmacy dosing, goal INR per neuro 2.5 will discontinue Coumadin today and initiate Xarelto and have him follow-up with neurology and cardiology. - Continue ASA and statin - PT/OT/ST - D/C planning to rehab however would prefer him going home. Both patient and is declining home health care as well. 2. Possible seizure - Patient had some episodes of stiffening and was started on Keppra - EEG showed some mild left hemisphere slowing from the stroke but no seizure activity - Will defer to neuro on whether to continue antiepileptic 3. RASHMI superimposed on chronic kidney disease stage II - Creatinine 1.51 on admission and has improved during hospitalization - Last creatinine to compare in 2017 was 0.9 - Recheck - Avoid nephrotoxic agents - Home ARB/HCTZ was held Lisinopril was started to control blood pressure. 3. CAD - S/P CABG - Continue ASA, statin, and FRANSISCO 4. DM type II - Hold home metformin - Monitor renal function - SSI per protocol - Check A1c 5. HTN, chronic essential - BPs stable - Home ARB/HCTZ held in light of RASHMI - Continue Norvasc and Lisinopril DVT prophylaxis: on SQ Heparin and transitioning to Xarelto today. At this time, patient has gained maximum benefit and ready to be discharged to home. - Time Spent with Patient Total time spent providing and/or coordinating discharge services: Less than 30 minutes - Quality: Stroke Last date observed well: 05/13/18 Last time observed well: 12:30 - Quality: VTE Deep Vein Thrombosis/Pulmonary Embolism Present on Admission: No Exam Vital signs: Vital Signs 05/16/18 12:00 05/16/18 16:00 05/16/18 20:00 Temperature 97.9 F 98.2 F 98.2 F Pulse Rate 78 79 76 Respiratory Rate 23 18 18 Blood Pressure 149/77 H 166/79 H Pulse Oximetry 98 96 97 05/17/18 00:00 05/17/18 04:00 05/17/18 08:00 Temperature 98.0 F 98.4 F 98.8 F Pulse Rate 74 84 86 Respiratory Rate 16 16 18 Blood Pressure 125/68 159/79 H 173/80 H Pulse Oximetry 95 96 96 Intake & Output 05/16/18 05/17/18 05/17/18 18:59 06:59 18:59 Intake Total 1105 / 1105 1345 / 1345 Output Total 400 / 400 Balance 705 / 705 1345 / 1345 Weight 86.1 kg Intake: IV 1105 / 1105 1105 / 1105 NS Inj 1,000 ML @ 84 mls/hr IV. 1000 / 1000 1000 / 1000 CONT .[id number] [place] Rx#:[id number] Keppra Inj 500 MG In NS Inj 100 105 / 105 105 / 105 ML @ 400 mls/hr IV.SIG Q12H [place] Rx#:[id number] Oral 240 / 240 Output: Urine 400 / 400 Other: # Voids 2 Date of Last Bowel Movement 05/16/18 05/16/18 Results Procedures completed during hospitalization: TPA 05/13/18 Labs on day of discharge: Labs from last 24 hours 05/17/18 05/17/18 05/16/18 07:12 04:47 21:43 PT 16.4 H INR 1.6 POC Glucose 115 H 164 H 05/16/18 05/16/18 17:00 11:16 PT INR POC Glucose 149 H 162 H - Impressions ITS Impressions Head MRI 05/13/18 00:00 CONCLUSION: 1. Broad area of acute or subacute cortical infarction of the left cerebral hemisphere as above. 2. No bleed, mass lesion or midline shift. 3. Old, small infarct of the left frontal lobe. Chest X-Ray 05/13/18 13:35 CONCLUSION: 1. Mild pulmonary venous congestion. 2. Moderate compensated cardiomegaly. Head CTA 05/13/18 13:35 CONCLUSION: 1. Unremarkable MRA of the brain. Neck CTA 05/13/18 13:35 CONCLUSION: 1. There is a least moderate calcified atherosclerotic plaquing at the right carotid bifurcation and proximal segment of the right internal carotid artery. There is some focal moderate stenosis of the right internal carotid artery approximately 1 cm above the bifurcation by approximately 50-60%. 2. Mild diastasis chronic changes of the left carotid artery system. No focal high-grade or significant stenosis. 3. 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 The left vertebral artery is patent throughout its extent. Head CT 05/15/18 00:00 CONCLUSION: 1. Stable area of encephalomalacia in the left frontal lobe. 2. Areas of diminished attenuation scattered throughout the left high convexity parietal region and left parieto-occipital watershed area correspond to regions of diffusion restriction on the prior MRI, characteristic of an acute or subacute infarct. 3. No acute intracranial hemorrhage, midline shift or new areas of infarction. Discharge Plan - Discharge Disposition Patient Disposition: 01 Discharge Home - Discharge Condition Condition: Good - Discharge Order Discharge Orders: Discharge Order (Routine); Ordered 05/17/18 Ordered By: Trista Torrez - Discharge Details Anticipated Discharge Date: 05/17/18 - Physicians Team Primary Care Provider: UNKNOWN, Attending Provider: Trista Torrez Other Providers: Guzman Bernardo MD ; Guzman Crouch MD
[2018-05-17] MEDS ORDERED: Rivaroxaban 20 MG Tablet PO SCH ×2 (09:30→17:00)
--- NOTE | 2018-05-17 10:50 | P.PNCA ---
<Teri Walter N - Last Filed: 05/17/18 10:37> Subjective Interval history: Patient sitting in chair in no acute distress. Patient states that he is feeling much better and denies any chest pain, pressure, dizziness, palpitations or shortness of breath. Expressive aphasia has greatly improved. Physical Exam Vital signs: Vital Signs 05/16/18 12:00 05/16/18 16:00 05/16/18 20:00 Temperature 97.9 F 98.2 F 98.2 F Pulse Rate 78 79 76 Respiratory Rate Blood Pressure 149/77 H 166/79 H Pulse Oximetry 98 96 97 05/17/18 00:00 05/17/18 04:00 05/17/18 08:00 Temperature 98.0 F 98.4 F 98.8 F Pulse Rate 74 84 86 Respiratory Rate 18 Blood Pressure 125/68 159/79 H 173/80 H Pulse Oximetry 95 96 96 Intake & Output 05/16/18 05/17/18 05/17/18 18:59 06:59 18:59 Intake Total 1105 / 1105 1345 / 1345 105 / 105 Output Total 400 / 400 Balance 705 / 705 1345 / 1345 105 / 105 Weight 86.1 kg Intake: IV 1105 / 1105 1105 / 1105 105 / 105 NS Inj 1,000 ML @ 84 mls/hr IV. 1000 / 1000 1000 / 1000 CONT .[id number] [place] Rx#:[id number] Keppra Inj 500 MG In NS Inj 100 105 / 105 105 / 105 105 / 105 ML @ 400 mls/hr IV.SIG Q12H [place] Rx#:[id number] Oral 240 / 240 Output: Urine 400 / 400 Other: # Voids 2 Date of Last Bowel Movement 05/16/18 05/16/18 Narrative: GENERAL: This is a well-nourished, well-developed patient, in no apparent distress. Patient speaks in clear complete sentences. Patient is pleasant. HEENT: Head is atraumatic and normocephalic. Neck is supple without lymphadenopathy and trachea is midline. No JVD or carotid bruits. CARDIOVASCULAR: Regular rate and rhythm without murmurs, gallops, or rubs. RESPIRATORY: Clear to auscultation. Breath sounds equal bilaterally. No wheezes , rales, or rhonchi. Chest wall is nontender. No use of accessory muscles. GASTROINTESTINAL: Abdomen is nontender, nondistended. Abdomen soft. No obvious pulsatile mass or bruit. No CVA tenderness. Strong femoral pulses bilaterally. Normal bowel sounds in all quadrants. MUSCULOSKELETAL: Patient is moving upper and lower extremities freely. No calf tenderness or edema, no Homans sign. Strong pulses in upper and lower extremities. NEUROLOGICAL: Patient is alert and oriented. Cranial nerves 2-12 are grossly intact. Expressive aphasia is greatly improved. SKIN: No rash and turgor is normal. - Urinary Catheter Management Indwelling Urethral Catheter Cath placed during this visit: no Assessment and Plan - Assessment (1) Atrial fibrillation Code(s): I48.91 - Unspecified atrial fibrillation Status: Chronic (2) Acute cerebrovascular accident Code(s): I63.9 - Cerebral infarction, unspecified Status: Acute (3) Hypertension Code(s): I10 - Essential (primary) hypertension Status: Chronic - Plan Warfarin was stopped, start Xarelto first dose tonight. Patient cleared for discharge from cardiac standpoint. We will follow during hospitalization and adjust cardiac treatment plan as needed. Patient was seen and evaluated by Dr. Watson who participated in care, management and decision-making. <Gil Watson - Last Filed: 05/17/18 16:11> Physical Exam Vital signs: Vital Signs 05/16/18 20:00 05/17/18 00:00 05/17/18 04:00 Temperature 98.2 F 98.0 F 98.4 F Pulse Rate 76 74 84 Respiratory Rate 18 16 16 Blood Pressure 166/79 H 125/68 159/79 H Pulse Oximetry 97 95 96 05/17/18 08:00 Temperature 98.8 F Pulse Rate 86 Respiratory Rate 18 Blood Pressure 173/80 H Pulse Oximetry 96 Intake & Output 05/16/18 05/17/18 05/17/18 18:59 06:59 18:59 Intake Total 1105 / 1105 1345 / 1345 105 / 105 Output Total 400 / 400 Balance 705 / 705 1345 / 1345 105 / 105 Weight 189 lb 13.088 oz Intake: IV 1105 / 1105 1105 / 1105 105 / 105 NS Inj 1,000 ML @ 84 mls/hr IV. 1000 / 1000 1000 / 1000 CONT .[id number] [facility] Rx#:[id number] Keppra Inj 500 MG In NS Inj 100 105 / 105 105 / 105 105 / 105 ML @ 400 mls/hr IV.SIG Q12H [place] Rx#:[id number] Oral 240 / 240 Output: Urine 400 / 400 Other: # Voids 2 Date of Last Bowel Movement 05/16/18 05/16/18 - Urinary Catheter Management Indwelling Urethral Catheter Cath placed during this visit: no Assessment and Plan - Assessment (1) Atrial fibrillation Code(s): I48.91 - Unspecified atrial fibrillation Status: Chronic (2) Acute cerebrovascular accident Code(s): I63.9 - Cerebral infarction, unspecified Status: Acute (3) Hypertension Code(s): I10 - Essential (primary) hypertension Status: Chronic - Attending Attestation Patient seen and examined. I reviewed and agree with the evaluation and plan as presented. Neurologic deficits markedly improved. Start anticoagulation with Xarelto. DC home. F/u w Dr. Crouch next week. <Teri Walter - Last Filed: 05/17/18 10:37> (3) Hypertension Qualifiers: Hypertension type: essential hypertension Qualified Code(s): I10 - Essential (primary) hypertension <Gil Watson - Last Filed: 05/17/18 16:11> (3) Hypertension Qualifiers: Hypertension type: essential hypertension Qualified Code(s): I10 - Essential (primary) hypertension
== END 2018-05-17 12:15 | disposition home or self-care (01) ==
LOC: NEPE 13:29 → NEDA 15:00 → N03 16:17 → N05 05-16 16:14
PROVIDERS: ADMIT Family Medicine; ATTEND Family Medicine